=== PATIENT | female | born 1960 | race Caucasian/White ===

== ENCOUNTER 2024-09-26 14:12 | Outpatient (AMB) | payer OTHER, SELFPAY ==
--- NOTE | 2024-09-26 14:24 | A.OFFPC_ITS ---
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: No Allergies nitrofurantoin [From MACROBID] Allergy (Severe, Verified 09/26/24 14:25) SEVERE RASH HEAD TO TOE amoxicillin [AMOXICILLIN] Allergy (Mild, Verified 09/26/24 14:25) ITCHY vancomycin [VANCOMYCIN] Allergy (Mild, Verified 09/26/24 14:25) scalp itchiness ibuprofen [From MOTRIN] Allergy (Unknown, Verified 09/26/24 14:25) SHORT OF BREATH naproxen [From ALEVE] Allergy (Unknown, Verified 09/26/24 14:25) SHORT OF BREATH shellfish derived [SHELLFISH DERIVED] Allergy (Unknown, Verified 09/26/24 14:25) SHORT OF BREATH shrimp [SHRIMP] Allergy (Unknown, Verified 09/26/24 14:25) SHORT OF BREATH Medication List - Last Reconciled 09/26/24 by Yumiko Lentz PA-C calcium (calcium citrate) PO cholecalciferol (vitamin D3) 50 mcg PO DAILY estradiol 0.01%(0.1mg/gram) vaginal fluocinolone acetonide oil 0.01% drps otic (ears) [garlic PO] [grapefruit seed extract PO] vitamin K2 PO Tobacco use date assessed: 09/26/24 Dental Screening Dental Screen Date: 09/26/24 Did you have a dental visit in the last 12 months?: Yes Did you have a dental problem in the last 6 months where you did not have access to dental care?: No Was dental information given to patient?: Patient has dentist HPI est care HPI Details Patient is a 63-year-old female with a significant past medical history of vitamin-D insufficiency who presents today to [facility]. She is transferring from Dr. Khalil at [facility]. She has a hx of osteopenia, hld, and prediabetes. She does complain today of feeling tired more than baseline. She sleeps 4 hours and wonders if this is related to just hormone changes. She says she will feel better if she just get some blood work checked to make sure she is not anemic. Endo: She was told at one point she was borderline diabetic. Her two uncles are t1dm. CV: No history of hypertension. Blood pressures have who has been low end normal. In the past cholesterol was high. States her diet could be a little bit better. [place] [facility] [place] [facility] New[place] Hearing Screener: UTD, follows with Dr. Gibson Bone density: [place] [facility]oscopy: UTD 2023- due in 2033 She does work full-time and enjoys gardening and walking every day. [facility] Surgical History (Updated 09/26/24 @ 14:39 by Estella Cisneros CMA) History of bunionectomy Social History (Updated 09/26/24 @ 14:39 by Estella Cisneros CMA) Housing: House Alcohol intake: never Patient Tobacco Use Status: Never used Tobacco e-Cigarette/Vaping Use: Never Used Second Hand Smoke Exposure: No service: No Current occupational status: employed Current occupation: [employer] Current occupational exposures/hazards: No Cognitive needs: No Hearing needs: No Vision needs: No Questionnaire PHQ-9 Over the last 2 weeks, how often have you been bothered by any of the following problems? 1. Little interest or pleasure in doing things: not at all 2. Feeling down, depressed, or hopeless: not at all 3. Trouble falling or staying asleep, or sleeping too much: several days 4. Feeling tired or having little energy: several days 5. Poor appetite or overeating: not at all 6. Feeling bad about yourself - or that you are a failure or have let yourself or your family down: not at all 7. Trouble concentrating on things, such as reading the newspaper or watching television: not at all 8. Moving or speaking so slowly that other people could have noticed. Or the opposite - being so fidgety or restless that you have been moving around a lot more than usual: not at all 9. Thoughts that you would be better off or of hurting yourself in some way: not at all Total score: 2 Depression Screening Interpretation: Negative Depression Screening Done: Yes 97605 - PHQ-9 Billing: Yes Source: Developed by Drs. Eric Tillman, Apple Westbrook, Eduar Waldrop and colleagues, with an educational glenn from [employer]. Thrive Questionnaire I am a: Patient What is your living situation today?: I have a steady place to live Within the past 12 months, did the food you bought not last and you didn't have the money to get more?: Never true Within the past 12 months, did you worry whether your food would run out before you got money to buy more?: Never true Do you have trouble paying for medicines?: No Do you have trouble getting transportation to medical appointments?: No Do you have trouble paying your heating and electricity bill?: No Do you have trouble taking care of your child, family member or friend?: No Do you have trouble with day-to-day activities such as bathing, preparing meals, shopping, managing finances, etc.?: No Are you currently unemployed and looking for a job?: No Are you interested in more education?: No Please select the resources that you would like help with: None Currently or been in a relationship where the following occur: No concerns reported THRIVE Score: 0 AUDIT C Alcohol Use Questionnaire (AUDIT-C) 1. How often do you have a drink containing alcohol?: Never Total Score: 0 SYLVIA-7 AMB Questionnaire SYLVIA-7 Feeling nervous, anxious, or on edge: 0 = Not at all Not being able to stop or control worryin = Not at all Worrying too much about different things: 0 = Not at all Trouble relaxin = Not at all Being so restless that it is hard to sit still: 0 = Not at all Becoming easily annoyed or irritable: 3 = Nearly every day Feeling afraid as if something awful might happen: 0 = Not at all Total SYLVIA-7 score (0-4 normal; 5-9 mild; 10-14 moderate; 15-21 severe): 3 Source: Developed by Drs. Eric Tillman, Apple Westbrook, Eduar Waldrop and colleagues, with an educational glenn from [employer]. SYLVIA-7 Assessment Billing SYLVIA-7 Assessment Tool: SYLVIA-7 Assessment 49003 Physical exam (Primary Care) Vital Signs: Last Vital Signs Pulse 72 09/26/24 14:28 Resp 12 09/26/24 14:28 BP 90/62 09/26/24 14:28 Pulse Ox 99 09/26/24 14:28 Oxygen Delivery Method Room Air 09/26/24 14:28 BMI result Body Mass Index 20.0 Tobacco/Smoking Status: Tobacco use Status Tobacco use date assessed 09/26/24 09/26/24 14:27 Patient Tobacco Use Status Never used Tobacco 09/26/24 14:39 e-Cigarette/Vaping Use Never Used 09/26/24 14:39 PHQ-9: PHQ-9 Score PHQ-9: Total score 2 09/26/24 14:39 Depression Screening Interpretation: Negative Currently or been in a relationship where the following occur: No concerns reported Const Orientation/consciousness: patient oriented x3 HENMT Ears: hearing grossly normal bilaterally Neck Thyroid: Thyroid normal Lymphatic: no lymphadenopathy noted Resp Auscultation: clear to auscultation bilaterally Cardio Rate: regular rate Rhythm: regular rhythm Heart sounds: S1 normal heart sound present and S2 normal heart sound present GI Inspection: Yes normal to inspection Palpation (GI): Soft to palpation and Other GI palpation findings present (nontender, no cva tenderness) Auscultation: normoactive bowel sounds Rectal Exam - Female: deferred Skin General skin exam: no rashes or lesions noted Neuro General: patient oriented x3, gait normal and no focal motor deficits Coding Level of Care Code New Pt Level 3 (66590) Complex EM visit Add On G2211 Diagnoses Osteopenia M85.80 Dyslipidemia E78.5 Fatigue R53.83 Additional Codes SYLVIA-7 Assessment Billing - SYLVIA-7 Assessment Tool: SYLVIA-7 Assessment 39025 ([id number]) PHQ-9 - 49366 - PHQ-9 Billing: Yes ([id number]) Assessment & Plan Assessment & Plan (1) Osteopenia: Code(s): M85.80 - Other specified disorders of bone density and structure, unspecified site Category: Medical Plan: Bone density ordered. Labs ordered (2) Dyslipidemia: Code(s): E78.5 - Hyperlipidemia, unspecified Category: Medical Plan: Lipids ordered (3) Fatigue: Code(s): R53.83 - Other fatigue Category: Medical Plan: Labs ordered. We will follow up pending test results. Orders: Orders IRON PROFILE Today E78.5 - Hyperlipidemia, unspecified, M85.80 - Other specified disorders of bone density and structure, unspecified site, R53.83 - Other fatigue Vitamin B12 and Folate Today E78.5 - Hyperlipidemia, unspecified, M85.80 - Other specified disorders of bone density and structure, unspecified site, R53.83 - Other fatigue Magnesium Today E78.5 - Hyperlipidemia, unspecified, M85.80 - Other specified disorders of bone density and structure, unspecified site, R53.83 - Other fatigue TSH reflex Free T4 Today E78.5 - Hyperlipidemia, unspecified, M85.80 - Other specified disorders of bone density and structure, unspecified site, R53.83 - Ot her fatigue Comprehensive Carbon. Panel Fast Today E78.5 - Hyperlipidemia, unspecified, M85.80 - Other specified disorders of bone density and structure, unspecified site, R53.83 - Other fatigue Vitamin D 25-OH Total Today E78.5 - Hyperlipidemia, unspecified, M85.80 - Other specified disorders of bone density and structure, unspecified site, R53.83 - Other fatigue Complete Blood Count Auto Diff Today E78.5 - Hyperlipidemia, unspecified, M85.80 - Other specified disorders of bone density and structure, unspecified si te, R53.83 - Other fatigue Ferritin Today E78.5 - Hyperlipidemia, unspecified, M85.80 - Other specified disorders of bone density and structure, unspecified site, R53.83 - Other fatigue Lipid Panel Today E78.5 - Hyperlipidemia, unspecified, M85.80 - Other specified disorders of bone density and structure, unspecified site, R53.83 - Other fatigu e UA CC w/rflx Micro + Cult Today E78.5 - Hyperlipidemia, unspecified, M85.80 - Other specified disorders of bone density and structure, unspecified site, R53.83 - Other fatigue, Z13.220 - Encounter for screening for lipoid disorders Microalbumin, Random (w Creat) Today E78.5 - Hyperlipidemia, unspecified, M85.80 - Other specified disorders of bone density and structure, unspecified site, R53.83 - Other fatigue XR DEXA axial skeleton Today M85.80 - Other specified disorders of bone density and structure, unspecified site
[2024-09-26 14:28] VITALS: BP 90/62; PULSE 72; RESP 12; O2SAT 99
--- OUTSIDE RECORDS SUMMARY | 2024-09-26 16:52 | XMS_ITS | Data Portability ---
Author Organization [place] [facility],, DAYSI MENDOZA MD Address [address] [address] Care Team Providers Care Professional Architect Name Role Phone EDIE TAM Primary Care Provider [phone] Assessment No assessment recorded. Plan of Treatment Reminders Order Date Submit Date Provider Last Modified By Organization Details Last Modified Time Details Appointments None recorded. Lab cytology report, thin prep, smear or scraping, cervical or vaginal 2024 025 KRYSTA [facility] (Centralized Electronic Ordering - All Locations), Patient Can Go To The Location Of Their Choice, [id number] 5 14:16:15 wet mount, vaginal 2024 025 [email or web address] 1 In-Office Order, Internal Use Only DO Not Attach Compendium DO Not Attach Compendium, Do Not Delete/merge, [id number] 5 08:21:47 hemoglobin , gastrointe stinal, stool 2024 025 [email or web address] 1 In-Office Order, Internal Use Only DO Not Attach Compendium DO Not Attach Compendium, Do Not Delete/merge, [id number] 5 08:16:55 urinalysis , dipstick 2023 024 [email or web address] 1 In-Office Order, Internal Use Only DO Not Attach Compendium DO Not Attach Compendium, Do Not Delete/merge, [id number] 4 15:41:43 culture, urine 2023 024 KRYSTA [facility] (Centralized Electronic Ordering - All Locations), Patient Can Go To The Location Of Their Choice, [id number] 4 20:06:31 wet mount, vaginal 2023 024 [email or web address] 1 In-Office Order, Internal Use Only DO Not Attach Compendium DO Not Attach Compendium, Do Not Delete/merge, [id number] 4 13:45:28 pap test, thinprep, cervical 2022 023 [email or web address] [facility] (Centralized Electronic Ordering - All Locations), Patient Can Go To The Location Of Their Choice, [id number] 3 07:25:31 fecal occult blood, stool 2022 023 [email or web address] 1 In-Office Order, Internal Use Only DO Not Attach Compendium DO Not Attach Compendium, Do Not Delete/merge, [id number] 3 09:05:43 wet mount, vaginal 2022 023 [email or web address] 1 In-Office Order, Internal Use Only DO Not Attach Compendium DO Not Attach Compendium, Do Not Delete/merge, [id number] 3 08:30:36 wet mount, vaginal 2022 023 [email or web address] 1 In-Office Order, Internal Use Only DO Not Attach Compendium DO Not Attach Compendium, Do Not Delete/merge, [id number] 3 08:56:58 Referral None recorded. Procedures None recorded. Surgeries None recorded. Imaging MAMMO, screening, digital, bilateral - Breast Aspiration and/or Biopsy if needed 2024 025 [email or web address], [address], [address], [place], [address], 5 11:37:04 bone density 2022 023 [facility] Orders, [address], [address], [place], [address], 4 09:52:41 MAMMO, screening, digital, bilateral - Breast Aspiration and/or Biopsy if needed 2022 023 [facility] Orders, [address], [address], [place], [address], 4 08:02:42 Medication Orders estradiol 0.01% (0.1 mg/gram) vaginal cream 2024 025 [id number] [address] [place], [address], 5 08:16:56 fluconazol e 150 mg tablet 2023 025 [facility] [address] [place], [address], 5 07:56:51 estradiol 0.01% (0.1 mg/gram) vaginal cream 2022 023 [facility], [address] [place], [address], 3 09:07:18 fluconazol e 150 mg tablet 2022 023 [email or web address] [address] [place], [address], 5 07:56:47 terconazol e 0.4 % vaginal cream 2022 023 [facility]armacy #0859, [address] [place] [address], [address], 5 07:56:58 Patient TargetsNo targets recorded. Patient Instructions Encounter Date Encounter Id Patient Instructions Last Modified By Organization Details Last Modified Time 09/22/2022 [id number] vaginal yeast infection: care instructions Not available 09/22/2022 08:56:58 She is here for a few day histroy of vaginal pruritus. She notes that her vaginal yeast infection cleared up completely after treatment in 07/14, and only recently returned. she is using the estradiol vaginal cream nightly, now. She has symptomatic monilia, however on wet mount the amount of yeast is less than she usually has, and the vaginal cells are becoming more estrogenized, and so overall this is an improvement. She prefers terazol 7 cream, rc called in. Continue her present therapy, and add in RepHresh for the next few weeks. [email or web address] Not available 09/22/2022 08:59:54 12/29/2022 [id number] vaginal yeast infection: care instructions [place] Not available 12/29/2022 08:30:36 She is here for a complaint of vaginal pruritus and discharge. She has symptomatic monilia, rx diflucan, call if symptoms persist or recur. Not available 12/29/2022 08:43:27 02/27/2023 [id number] learning about healthy weight [place] Not available 02/27/2023 09:05:40 She is here for annual, had issues with recurring vaginitis this yea, would like wet selina just to be certain noting is wrong, she has some minor discomfort vaginally. Note from 2021: She is here for annual exam, she took a leftover diflucan 3 weeks ago, requests wet selina though she feels improved. She is doing well on her estradiol vaginal cream, elects to continue. _ Check bone density. Continue estradiol vaginal cream. She appears to be doing well. Monthly self breast exam was taught, and stressed, and is advised to call if she discovers any new mass in the breast. [facility] Not available 02/27/2023 09:07:02 12/04/2023 [id number] urinary tract infection in women information [place] Not available 12/04/2023 15:41:43 vaginal yeast infection: care instructions [place] Not available 12/04/2023 13:45:16 She is here for a few day histroy of vaginal pruritus. she was treated for yeast with diflucan in 05/17 after taking antibiotics, and also in 07/15, the problems resolved but now it is back. She has symptomatic monilia vaginitis. Rx diflucan now, and a refill is given. Advised to use either RepHresh or boric acid 600 mg caps twice a week vaginally for a month, to try to improve the pH. She had left the office,then called an hour later and asked if she could give us a urine specime to test in case it is a UTI. She returned, and the urine dip is clear, will check culture at her request. [facility] Not available 12/04/2023 15:42:39 06/11/2024 [id number] learning about healthy weight [facility] Not available 06/11/2024 08:16:55 vaginal yeast infection: care instructions [facility] Not available 06/11/2024 08:21:47 She is here for annual, doing well on estradiol cream, wonders if she has a yeast infection. Note from 2022: She is here for annual, had issues with recurring vaginitis this yea, would like wet selina just to be certain noting is wrong, she has some minor discomfort vaginally. __ She appears to be doing well. Renew estradiol vaginal cream, it is helping to prevent the recurrent yeast she was having, Monthly self breast exam was taught, and stressed, and is advised to call if she discovers any new mass in the breast. Wet selina are negative for yeast, she is reassured. If pap shows yeast we can call something in. [facility] Not available 06/11/2024 08:22:48 Reason for Referral None Reported. Results Created Date Observation Date Name Description Value Unit Range Abnormal Flag Note LastModifiedBy Organization Detail LastModifiedTime 09/23/1909/22/2022 wet mount , vagin al Clue Cells negati ve Not Available In-Office Order Internal Use Only DO Not Attach Compendium DO Not Attach Compendium, Do Not Delete/merge, [id number] 09/22/2022 08:47:54 09/23/1909/22/2022 wet mount , vagin al Trichomonas negati ve Not Available In-Office Order Internal Use Only DO Not Attach Compendium DO Not Attach Compendium, Do Not Delete/merge, [id number] 09/22/2022 08:47:54 09/23/1909/22/2022 wet mount , vagin al Hyphae positi ve Not Available In-Office Order Internal Use Only DO Not Attach Compendium DO Not Attach Compendium, Do Not Delete/merge, [id number] 09/22/2022 08:47:54 09/23/19 23 09/22/2022 wet mount , vagin al atrophic epithelium positi ve Not Available In-Office Order Internal Use Only DO Not Attach Compendium DO Not Attach Compendium, Do Not Delete/merge, [id number] 09/22/2022 08:47:54 12/30/19 23 12/29/2022 wet mount , vagin al Clue Cells negati ve Not Available In-Office Order Internal Use Only DO Not Attach Compendium DO Not Attach Compendium, Do Not Delete/merge, [id number] 12/29/2022 08:30:08 12/30/19 23 12/29/2022 wet mount , vagin al Trichomonas negati ve Not Available In-Office Order Internal Use Only DO Not Attach Compendium DO Not Attach Compendium, Do Not Delete/merge, [id number] 12/29/2022 08:30:08 12/30/19 23 12/29/2022 wet mount , vagin al Hyphae positi ve Not Available In-Office Order Internal Use Only DO Not Attach Compendium DO Not Attach Compendium, Do Not Delete/merge, [id number] 12/29/2022 08:30:08 12/30/19 23 12/29/2022 wet mount , vagin al atrophic epithelium positi ve Not Available In-Office Order Internal Use Only DO Not Attach Compendium DO Not Attach Compendium, Do Not Delete/merge, [id number] 12/29/2022 08:30:08 02/28/20 23 02/27/2023 [facility] CYTOL OGY results Swathi nt Name: MEETA HOFFMAN florecita : [id number] (Age: 62) Lab Acces nona #: [id number] Colle ction Date: 2022 Acces nona Date: 2022 Sign Out Date: 03/03 Tissu e Sourc e: 1: THINP REP SHIFT FOREMAN PAP TEST, CERVI YANG: Final Diagn osis: NEGAT DA FOR INTRA EPITH ELIAL LESIO N OR MALIG MICHELE . Satis facto ry for evalu ation . Endoc ervic al/tr ansfo rmati on zone prese nt. Clini yang Histo ry: Date of Last Menst rual Perio d: not avail able Menst rual Histo ry: Post- menop ausal Contr acept da Histo ry: not avail able Ancil handy Testi ng: HPV (ASCU S) Case image d by the ThinP rep Imagi ng Syste m with massiel ramon or josias ha Perfo rmed at [facility] ate Refer ence [facility], [address] [place] Clini yang Histo ry (othe r): Z01.4 19, ROTUI NE SCREE N LPS 03/04 NEG Phone #: [phone], On-Ca ll Patho logis t: [id number] Not Available [facility] (Centralized Electronic Ordering - All Locations) Patient Can Go To The Location Of Their Choice, [id number] 03/03/2023 10:22:04 02/28/20 23 02/27/2023 fecal occul t blood , stool Occult Blood negati ve Not Available In-Office Order Internal Use Only DO Not Attach Compendium DO Not Attach Compendium, Do Not Delete/merge, [id number] 02/27/2023 08:39:16 12/04/19 24 12/05/2023 URINE CULTU RE, ROUTI NE urine culture, routine Final report Not Available [facility] ([facility]) [address] [facility], [place], [address], 12/05/2023 20:06:31 12/04/19 24 12/05/2023 URINE CULTU RE, ROUTI NE result 1 No growth Not Available [facility] ([facility]) [address] [facility], [place], [address], 12/05/2023 20:06:31 12/04/19 24 12/04/2023 urina lysis , dipst ick GLU Negati ve Not Available In-Office Order Internal Use Only DO Not Attach Compendium DO Not Attach Compendium, Do Not Delete/merge, 12/04/2023 15:32:58 12/04/19 24 12/04/2023 urina lysis , dipst ick GENESIS Negati ve Not Available In-Office Order Internal Use Only DO Not Attach Compendium DO Not Attach Compendium, Do Not Delete/merge, 12/04/2023 15:32:58 12/04/19 24 12/04/2023 urina lysis , dipst ick KET Negati ve Not Available In-Office Order Internal Use Only DO Not Attach Compendium DO Not Attach Compendium, Do Not Delete/merge, 12/04/2023 15:32:58 12/04/19 24 12/04/2023 urina lysis , dipst ick SG 1.010 Not Available In-Office Order Internal Use Only DO Not Attach Compendium DO Not Attach Compendium, Do Not Delete/merge, 12/04/2023 15:32:58 12/04/19 24 12/04/2023 urina lysis , dipst ick BLO Negati ve Not Available In-Office Order Internal Use Only DO Not Attach Compendium DO Not Attach Compendium, Do Not Delete/merge, 12/04/2023 15:32:58 12/04/19 24 12/04/2023 urina lysis , dipst ick pH 5.0 Not Available In-Office Order Internal Use Only DO Not Attach Compendium DO Not Attach Compendium, Do Not Delete/merge, 12/04/2023 15:32:58 12/04/19 24 12/04/2023 urina lysis , dipst ick PRO Negati ve Not Available In-Office Order Internal Use Only DO Not Attach Compendium DO Not Attach Compendium, Do Not Delete/merge, 12/04/2023 15:32:58 12/04/19 24 12/04/2023 urina lysis , dipst ick URO 0.2 E.U. / dl Not Available In-Office Order Internal Use Only DO Not Attach Compendium DO Not Attach Compendium, Do Not Delete/merge, 12/04/2023 15:32:58 12/04/19 24 12/04/2023 urina lysis , dipst ick NIT negati ve Not Available In-Office Order Internal Use Only DO Not Attach Compendium DO Not Attach Compendium, Do Not Delete/merge, [id number] 12/04/2023 15:32:58 12/04/19 24 12/04/2023 urina lysis , dipst ick JENIFER Negati ve Not Available In-Office Order Internal Use Only DO Not Attach Compendium DO Not Attach Compendium, Do Not Delete/merge, [id number] 12/04/2023 15:32:58 12/04/19 24 12/04/2023 wet mount , vagin al Clue Cells negati ve Not Available In-Office Order Internal Use Only DO Not Attach Compendium DO Not Attach Compendium, Do Not Delete/merge, [id number] 12/04/2023 13:45:08 12/04/19 24 12/04/2023 wet mount , vagin al Trichomonas negati ve Not Available In-Office Order Internal Use Only DO Not Attach Compendium DO Not Attach Compendium, Do Not Delete/merge, [id number] 12/04/2023 13:45:08 12/04/19 24 12/04/2023 wet mount , vagin al Hyphae positi ve Not Available In-Office Order Internal Use Only DO Not Attach Compendium DO Not Attach Compendium, Do Not Delete/merge, [id number] 12/04/2023 13:45:08 12/04/19 24 12/04/2023 wet mount , vagin al atrophic epithelium positi ve Not Available In-Office Order Internal Use Only DO Not Attach Compendium DO Not Attach Compendium, Do Not Delete/merge, [id number] 12/04/2023 13:45:08 06/11/19 25 06/13/2024 IGP, RFX APTIM A HPV ASCU diagnosis: Commen t NEGAT DA FOR INTRA EPITH ELIAL LESIO N OR JOHANNY BAUTISTA . Not Available [facility] ([facility]) [address] [facility], [place], [address], 06/13/2024 14:16:15 06/11/19 25 06/13/2024 IGP, RFX APTIM A HPV ASCU specimen adequacy: Commen t Satis facto ry for evalu ation . Not Available [facility] ([facility]) [address] [place], [address], 06/13/2024 14:16:15 06/11/19 25 06/13/2024 IGP, RFX APTIM A HPV ASCU clinician provided ICD10: Eddie verdugo Z01.4 19 Not Available [facility] ([facility]) [address] [place], [address], 06/13/2024 14:16:15 06/11/19 25 06/13/2024 IGP, RFX APTIM A HPV ASCU performed by: Emily Amin (ASCP ) Not Available [facility] ([facility]) [address] [place], [address], 06/13/2024 14:16:15 06/11/19 25 06/13/2024 IGP, RFX APTIM A HPV ASCU . . Not Available [facility] ([facility]) [address] [place], [address], 06/13/2024 14:16:15 06/11/19 25 06/13/2024 IGP, RFX APTIM A HPV ASCU note: Eddie verdugo The Pap smear is a scree harshil test desig ayah to aid in the detec tion of gio ligna nt and malig nant condi tions of the uteri ne cervi x. It is not a diagn ostic proce dure and shoul d not be used as the sole means of detec ting cervi yang cance r. Both false -posi tive and false -nega tive repor ts do occur . Not Available [facility] ([facility]) [address] [place], [address], 06/13/2024 14:16:15 06/11/19 25 06/13/2024 IGP, RFX APTIM A HPV ASCU test methodology: Commen t This liqui d based ThinP rep(R ) pap test was carlin poon with the use of an image guide barron siddiqui. Not Available [facility] ([facility]) [address] [facility], [place], [address], 06/13/2024 14:16:15 06/11/19 25 06/13/2024 IGP, RFX APTIM A HPV ASCU . Commen t The HPV DNA refle x crite thao were not met with this speci men resul t there fore, no HPV testi ng was perfo rmed. Not Available [facility] ([facility]) [address] [facility], [place], [address], 06/13/2024 14:16:15 06/11/19 25 06/11/2024 wet mount , vagin al Clue Cells negati ve Not Available In-Office Order Internal Use Only DO Not Attach Compendium DO Not Attach Compendium, Do Not Delete/merge, 06/11/2024 08:17:12 06/11/19 25 06/11/2024 wet mount , vagin al Trichomonas negati ve Not Available In-Office Order Internal Use Only DO Not Attach Compendium DO Not Attach Compendium, Do Not Delete/merge, 06/11/2024 08:17:12 06/11/19 25 06/11/2024 wet mount , vagin al Hyphae negati ve Not Available In-Office Order Internal Use Only DO Not Attach Compendium DO Not Attach Compendium, Do Not Delete/merge, 06/11/2024 08:17:12 06/11/19 25 06/11/2024 wet mount , vagin al atrophic epithelium positi ve Not Available In-Office Order Internal Use Only DO Not Attach Compendium DO Not Attach Compendium, Do Not Delete/merge, 06/11/2024 08:17:12 06/11/19 25 06/11/2024 hemog lobin , gastr ointe gasper l, stool Occult Blood negati ve Not Available In-Office Order Internal Use Only DO Not Attach Compendium DO Not Attach Compendium, Do Not Delete/merge, 2025 07:58:57 08/04/19 24 08/03/2023 MAMMO , scree harshil, digit al, bilat eral No observ ation record ed. [facility] [place] [address] [place], [address], 08/07/2023 07:55:53 08/10/19 24 08/03/2023 bone densi ty No observ ation record ed. [facility] [place] [address] [place], [address], 08/10/2023 10:50:09 Result Notes None recorded. Problems Name Problem SNOMED Code Status Onset Date Resolution Date Notes Provider Name and Address Organization Details Recorded Time Osteopenia 485443674 Active 2002 was given Fosamax for 3 to 4 years, but developed gastritis had a colonoscop y MD Mary Torres [address], [place], [address], [place] [facility], 5 10:15:28 Mammograph y abnormal 062214898 Active MD Mary Torres,[address], [place], [address], [place] - [facility], 6 08:09:59 Lesion of vulva 851687860 Active MD Mary Torres,[address], [place], 5, [place] - [facility], 5 10:42:11 Atrophic vaginitis 37362386 Active 2020 1 finger introitus, NEEDS SMALLEST SPECULUM MD Mary Torres,[address], [place], 5, [place] - [facility], 3 09:08:02 Fatigue 93606415 Active Daysi Mendoza MD [address], [place], 5, [place] - [facility], 5 10:15:28 On examinatio n - lymphadeno reyes Active Daysi Mendoza MD [address], [place], [address], [place] [facility], 5 10:15:28 Menopausal syndrome 758795478 Active Daysi Mendoza MD [address], [place], [address], [place] [facility], 5 10:15:28 Problem Notes None recorded. Procedures Surgical History Date Name Laterality Status Provider Name and Address Organization Details Recorded Time 08/23/19 24 Most Recent Mammogram completed Khushboo Carey [place] - [place] in [facility], 12/04/2023 13:29:27 12/29/19 18 excision of bunion completed Khushboo Carey [place] [facility], 02/19/2020 09:31:11 04/23/20 15 Vulvar Biopsy completed Daysi Mendoza MD [address], [place], [address], [place] [facility], 04/23/2015 10:17:59 04/24/18 78 Other completed Khushboo Carey [place] - [facility], 08/06/2013 11:16:16 04/24/18 69 Other completed Khushboo Carey [place] - [facility], 04/20/2016 09:46:09 04/24/18 68 Tonsillectomy completed Khushboo Carey [place] - [facility], 08/06/2013 11:16:16 Imaging Results None recorded. Procedure Notes None recorded. Medical Equipment None Reported. Allergies Allergen ID Allergen Name Allergen Category Reaction Reaction Severity Criticality Documentation Date Start Date Code Code System Note Provider Name and Address Organization Details Recorded Time 18890 Macrobid medicatio n rash Not available Not available 08/06/2013 16355 1 RxNorm [place] Valadez in [facility], 4 11:16:16 38792 amoxicill in medicatio n itching Not available Not available 08/06/2013 723 RxNorm [place] Holloway in [facility], 3 11:36:40 30668 vancomyci n medicatio n hives moderate Not available 05/20/2020 41876 RxNorm DEWAYNE Holloway in [facility], 1 10:38:34 29220 Bactrim medicatio n rash moderate Not available 01/29/2021 90638 9 RxNorm Daysi Mendoza MD [address] [facility], [address], [place], [address] , [place]pe in [facility], 1 08:19:29 85919 butoconaz ole nitrate medicatio n muscle cramps moderate Not available 02/23/2021 31489 RxNorm Sever e abd cramp s when used. [place] in [facility], 1 08:29:33 Medications Name Sig Start Date Stop Date Status Note LastModified by Organization Details LastModified Time tretinoin 0.1 % topical cream APPLY A PEA-SIZE D AMOUNT TO DRY SKIN FACE AT BEDTIME TOLERATE D, FOLLOWED BY MOISTURI ZER active Not Available Not Available No t Available terconazo le 0.4 % vaginal cream INSERT 1 APPLICAT ORFUL EVERY DAY BY VAGINAL ROUTE FOR 7 DAYS. 06/11 completed Not Available Not Available Not Available azithromy vandana 250 mg tablet 08/08 completed Not Available Not Available Not Available fluconazo le 150 mg tablet TAKE 1 TABLET BY MOUTH DIRECTED . REPEAT IN 1 WEEK IF STILL HAVING SYMPTOMS . 06/11 completed Not Available Not Available Not Available hydrocodo ne 5 mg-acetam inophen 325 mg tablet 08/08 completed Not Available Not Available Not Available tretinoin 0.025 % topical cream APPLY A PEA SIZED AMOUNT TO FACE AT BEDTIME START EVERY OTHER NIGHT FOLLOW WITH MOISTURI ZER 07/18 completed Not Available Not Available Not Available prednison e 20 mg tablet TAKE 3 TABLETS BY MOUTH EVERY DAY FOR 3 DAYS, THEN 2 TABS DAILY FOR 3 DAYS. 02/23 completed Not Available Not Available Not Available gabapenti n 400 mg capsule TAKE 1 CAPSULE BY MOUTH ONCE A DAY AT BEDTIME 08/10 completed Not Available Not Available Not Available metronida zole 500 mg tablet TAKE 1 TABLET BY MOUTH TWICE A DAY FOR 7 DAYS 10/05 completed Not Available Not Available Not Available tretinoin 0.05 % topical cream APPLY PEA SIZED AMOUNT TO FACE AT BEDTIME TOLERATE D, FOLLOWED BY MOISTURI ZER active Not Available Not Available No t Available sulfameth oxazole 800 mg-trimet hoprim 160 mg tablet TAKE 1 TABLET BY MOUTH EVERY 12 HOURS FOR 7 DAYS 02/23 completed Not Available Not Available Not Available triamcino lone acetonide 0.1 % topical cream PLEASE SEE ATTACHED FOR DETAILED DIRECTIO NS active Not Available Not Available No t Available doxycycli ne monohydra te 100 mg capsule TAKE 1 CAPSULE BY MOUTH TWICE A DAY FOR 7 DAYS 06/11 completed Not Available Not Available Not Available gabapenti n 100 mg capsule 05/20 completed Not Available Not Available Not Available epinephri ne 0.3 mg/0.3 mL injection , auto-inje ctor INJECT 1 PEN INTRAMUS CULARLY ONCE TO TREAT ANAPHYLA XIS active Not Available Not Available No t Available estradiol 0.01% (0.1 mg/gram) vaginal cream INSERT 0.5 G VAGINALL Y EVERY DAY active Not Available Not Available No t Available methylpre dnisolone 4 mg tablets in a dose pack 04/20 completed Not Available Not Available Not Available boric acid (bulk) powder please compound 600 mg individu al boric acid capsules : use one 600 mg boric acid capsule in the vaginal canal every day. 10/05 completed Not Available Not Available Not Available fluticaso ne propionat e 50 mcg/actua tion nasal spray,alyssa pension USE 1 SPRAY INTO EACH NOSTRIL TWICE A DAY FOR 30 DAYS active Not Available Not Available No t Available oxycodone 5 mg tablet TAKE 1 TABLET BY MOUTH EVERY 6 HOURS NEEDED FOR PAIN 05/20 completed Not Available Not Available Not Available Vitamin D3 25 mcg (1,000 unit) capsule Take by oral route. 02/23 completed Not Available Not Available Not Available chlorhexi dine gluconate 0.12 % mouthwash 08/08 completed Not Available Not Available Not Available iron 04/20 completed Not Available Not Available Not Available Centrum Silver 02/27 completed Not Available Not Available Not Available Vitamin D3 07/07 completed Not Available Not Available Not Available Calcium 500 08/10 completed 1500 ad day lactait. Not Available Not Available Not Available collagen (bovine) 10/05 completed Not Available Not Available Not Available fluocinol one acetonide oil 0.01 % ear drops PLACE 3 DROPS INTO AFFECTED EAR(S) TWICE DAILY FOR 2 WEEKS THEN NEEDED active Not Available Not Available No t Available GaviLyte- G 236 gram-22.7 4 gram-6.74 gram-5.86 gram oral solution TAKE 4000 ML BY MOUTH DIRECTED active Not Available Not Available No t Available Probiotic 02/23 completed Not Available Not Available Not Available Gynazole- 1 2 % vaginal cream Insert 1 applicat orful every day by vaginal route for 1 day. 02/23 completed this was dispense d as a sample Not Available Not Available Not Available BinaxNOW COVID-19 Ag Self Test kit active Not Available Not Available Not Available Vitals Date Recorded Body height Body mass index (BMI) Body weight Heart rate Body temperature Systolic blood pressure Diastolic blood pressure Provider Name and Address Organization Details Last Updated DateTime 5 160.02 cm 19.7 kg/m2 39002.4 7 g 84 /min 97.2 [degF] 105 mm[Hg] 56 mm[Hg] Khushboo Carey MA - [facility], 5 07:55:20 Date Recorded Body height Body mass index (BMI) Body weight Systolic blood pressure Diastolic blood pressure Provider Name and Address Organization Details Last Updated DateTime 09/22/2022 160.02 cm 19.7 kg/m2 13860.75 g 142 mm[Hg] 79 mm[Hg] Michelle Samuels MA - [facility], 3 08:32:20 Date Recorded Body height Body mass index (BMI) Body weight Body temperature Heart rate Systolic blood pressure Diastolic blood pressure Provider Name and Address Organization Details Last Updated DateTime 4 160.02 cm 19.5 kg/m2 93358.8 8 g 97.3 [degF] 86 /min 119 mm[Hg] 54 mm[Hg] Khushboo Lepe in [facility], 4 13:26:58 Date Recorded Body height Body mass index (BMI) Body weight Heart rate Systolic blood pressure Diastolic blood pressure Provider Name and Address Organization Details Last Updated DateTime 3 160.02 cm 18.4 kg/m2 41893.6 1 g 84 /min 134 mm[Hg] 67 mm[Hg] Michelle Lepe in [facility], 3 08:04:03 Date Recorded Body height Body mass index (BMI) Body weight Heart rate Systolic blood pressure Diastolic blood pressure Provider Name and Address Organization Details Last Updated DateTime 3 160.02 cm 19.3 kg/m2 03711.5 7 g 87 /min 124 mm[Hg] 65 mm[Hg] Michelle Lepe in [facility], 3 08:46:04 Social History Question Answer Notes LastModified by Organizat ion Details LastModified Time Tobacco Smoking Status Never Smoker Not Available [facility] 02/25/2020 03:19:37 What Is Your Level Of Caffeine Consumption? Heavy Information not available 02/23/2022 In The 14 Days Before Symptom Onset, Have You Had Close Contact With A Laboratory-confirm ed COVID-19 While That Case Was Ill? No Information n ot available 01/18/2021 In The 14 Days Before Symptom Onset, Have You Had Close Contact With A Person Who Is Under Investigation For COVID-19 While That Person Was Ill? No Information not available 01/18/2021 Have You Been To An Area Known To Be High Risk For COVID-19? No Information not available 01/18/2021 What Type Of Diet Are You Following? REGULAR [id number] Information n ot available 02/25/2020 Which Illicit Or Recreational Drugs Have You Used? No [id number] Information not available 02/25/2020 Do You Reside In Or Have You Traveled To An Area Where Ebola Virus Transmission Is Active? No [id number] Information not available 02/25/2020 Education 2 Year College Information not available 08/06/2013 What Is The Highest Grade Or Level Of School You Have Completed Or The Highest Degree You Have Received? [id number] Information not available 01/18/2021 Who Is Your Employer? [employer]. Information not available 09/15/2021 How Many Days In The Past Year Have You Had A Heavy Drinking Consumption (4+ Female, 5+ Male)? 0 Information no t available 04/20/2016 Are There Any Guns Present In Your Home? No Information not available 01/18/2021 High Number Of Sexual Partners No Information not available 04/20/2016 To Which Gender Do You Self-identify? Female Information n ot available 04/20/2016 Marital Status Single Informatio n not available 08/06/2013 What Was The Date Of Your Most Recent Tobacco Screening? 06/11/2024 Information not available 06/11/2024 What Is Your Relationship Status? Single Information not available 01/18/2021 Are You Sexually Active? No [id number] Information not available 02/25/2020 How Much Tobacco Do You Smoke? No [id number] Information not available 02/25/2020 General Stress Level Medium Information not available 12/04/2023 How Many Years Have You Smoked Tobacco? 0 [id number] Information not available 02/25/2020 Have You Recently (within The Last 12 Weeks, Or During A Current ) Traveled To Or Lived In A Zika-affected Area? No Information not available 04/20/2016 Sex: Female Functional Status Question Answer Note LastModified by Organizat ion Details LastModified Time Do you use any illicit or recreational drugs? No Information not available 01/18/2021 Do you or have you ever used any other forms of tobacco or nicotine? No Information not available 01/18/2021 What is your level of alcohol consumption? None [id number] Information not available 02/25/2020 Do you or have you ever used smokeless tobacco? Never used smokeless tobacco Information not available 02/19/2020 Are you currently employed? 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 Never used electronic cigarettes Information not available 02/19/2020 What is your exercise level? Occasional [id number] Information not available 02/23/2021 Mental Status Question Answer Note LastModified by Organization D etails LastModified Time Do you feel stressed (tense, restless, nervous, or anxious, or unable to sleep at night)? [id number] Information not available 01/18/2021 Family History Relationship Description Onset Age of this Age Resolved Age Notes LastModified by Organization Details LastModified Time Mother Malignant tumor of breast 42 bilate ral..h ad a recurr ence. [email or web address] Not available 02/19/2020 09:29:19 Mother Problem 55 basal cell skin ca tmeczywor Not available 02/19/2020 09:29:05 Paternal Aunt Malignant tumor of breast 52 double masect dhruv Not available 04/23/2015 10:14:57 Father Problem 66 prosta te ca Not available 04/23/2015 10:14:57 Father Heart disease Not available 03/26 10:14:57 Maternal Grandmother Malignant tumor of breast Not available 03/26 10:14:57 Paternal Grandmother Problem women ca Not available 04/23/2015 10:14:57 Maternal Uncle Diabetes mellitus x2 Not available 03/26 10:14:57 Paternal Aunt Malignant tumor of breast 47 Not available 03/26 10:14:57 Medical History Condition Response Anesthesia complications N High Blood Pressure N Candidate for MyRisk panel N Autoimmune Condition N Thyroid Problems N Kidney or Bladder Problems N GI Problems N Lung Disease N Depression N Defects or Inherited Disease N History of Ovarian Cancer N Anemia Y History of Breast Cancer N ADA exposure N BRCA testing in past N Osteopenia N Psychiatric Illness N Anxiety Disorder Y Diabetes N Arthritis N Headaches or Migraines Y Infertility N Asthma N History of Cancer N Endometriosis N Hepatitis N Heart Disease N Hypertension N Osteoporosis N Gynecological History Statement/Question Response Dysmenorrhea Y If Post Menopausal, Age at Menopause 57 Flow Light Date of LMP 06/29/2017 Frequency of Cycle (Q days) Menses Monthly N Age at Menarche 18 Current Control Method None Most Recent Mammogram 08/23/2023 Age at First Child 2 Obstetrics History GPAL:G 0 P 0 0 0 0 Immunizations Vaccine Type Date Status Note Provider Nam e and Address Organization Details Recorded Time SARS-COV-2 (COVID-19) vaccine, UNSPECIFIED 1 completed DEWAYNE Holloway in [facility], 02/27/2023 08:45:10 SARS-COV-2 (COVID-19) vaccine, UNSPECIFIED 1 completed DEWAYNE Holloway in [facility], 02/27/2023 08:45:10 COVID-19, mRNA, LNP-S, PF, 30 mcg/0.3 mL dose 1 completed DEWAYNE Holloway in [facility], 02/27/2023 08:45:10 COVID-19, mRNA, LNP-S, PF, 30 mcg/0.3 mL dose 1 completed DEWAYNE Holloway in [facility], 02/27/2023 08:45:09 COVID-19, mRNA, LNP-S, PF, 30 mcg/0.3 mL dose 1 completed DEWAYNE Holloway in [facility], 02/27/2023 08:45:10 COVID-19, mRNA, LNP-S, PF, 30 mcg/0.3 mL dose 1 completed DEWAYNE Holloway in [facility], 02/27/2023 08:45:10 Td (adult), 2 Lf tetanus toxoid, preservative free, adsorbed 5 completed DEWAYNE Holloway in [facility], 02/27/2023 08:45:10 Past Encounters Encounter ID Performer Location Encounter Start Date Encounter Closed Date Diagnosis/Indication Diagnosis SNOMED-CT Code Diagnosis ICD10 Code Diagnosis Note [id number] MD DAYSI Torres MD [address] [place] [address],[address] [place] [address] 08/06/2013 10:36:44 08/08/2013 13:42:07 Fatigue 74860205 Venereal d isease screening 736215951 On examina tion - lymphadenopathy 527160091 Menopausal syndrome 098071049 [id number] MD DAYSI Torres MD [address] [place] [address], [place] [address] 02/11/2014 08:59:48 02/11/2014 11:16:46 Specialized medical examination 99346514 Screening mammography 75406432 Osteopenia [id number] [id number] MD DAYSI Torres MD [address] [place] [address], [place] [address] 03/05/2014 08:57:49 03/05/2014 10:21:00 Osteopenia [id number] MD DAYSI Torres MD [address] [place] [address], [place] [address] 04/14/2015 07:47:48 04/14/2015 11:40:53 Specialized medical examination 29113060 Z01.419 Screening for malignant neoplasm of rectum 089760594 Z12.12 Screening mammography 24 718200 Z12.31 [id number] MD DAYSI Torres MD [address] [place] [address], [place] [address] 04/23/2015 09:24:17 04/23/2015 11:38:56 Lesion of vulva 490171831 N90.89 [id number] MD DAYSI Torres MD [address] [place] [address],[place] [address] 04/20/2016 09:17:29 04/20/2016 11:17:19 Specialized medical examination 80389639 Z01.419 Screening mammography 24 804770 Z12.31 Osteopenia 987208286 M85 .851 [id number] MD DAYSI Torres MD [address] [place] [address], [place] [address] 07/07/2016 15:09:21 07/07/2016 16:16:42 Osteopenia 927220832 M85.851 [id number] MD DAYSI Torres MD [address] [place] [address] [place] [address] 08/08/2017 08:18:23 08/08/2017 12:59:38 Specialized medical examination 93337494 Z01.419 Screening for malignant neoplasm of rectum 244014325 Z12.12 Screening mammography 24 714413 Z12.31 [id number] MD DAYSI Torres MD [address] [place] [address] [place] [address] 08/10/2018 09:45:39 08/10/2018 14:51:28 Candidal vulvovaginitis 85720587 B37.3 [id number] MD DAYSI Torres MD [address] [place] [address] 08/28/2018 08:49:18 08/28/2018 10:48:29 Specialized medical examination 07696537 Z01.419 Screening for malignant neoplasm of rectum 591956938 Z12.12 Screening mammography 24 963517 Z12.31 Screening for osteoporosis 983616163 Z13.820 [id number] MD DAYSI Torres MD [address] [place] [address],[facility] [place] [address] 02/19/2020 09:21:56 02/19/2020 10:32:31 Specialized medical examination 40924405 Z01.419 Screening mammography 24 874532 Z12.31 Acute lowe r urinary tract infection 145711757 R30.0 Mass of left breast 1224 960851 9283979 N63.25 Candidal vulvovaginitis 94073773 B37.3 [id number] MD DAYSI Torres MD [address] [place] [address] [place] [address] 02/26/2020 08:51:09 02/26/2020 09:38:21 Venereal disease screening 148536935 Z11.3 Candidal vulvovaginitis 12215031 B37.3 Vulvitis 64044151 N76.2 B96.89 [id number] MD DAYSI Torres MD [address] [place] [address],[place] [address] 05/20/2020 10:35:25 05/20/2020 12:03:54 Candidal vulvovaginitis 86139821 B37.3 Vulvitis 24836437 N76.2 B96.89 [id number] MD DAYSI Torres MD [address] [place] [address],[place] [address] 05/21/2020 09:02:57 05/21/2020 11:24:36 Candidal vulvovaginitis 59032805 B37.3 Vulvitis 46744822 N76.2 B96.89 [id number] MD DAYSI Torres MD [address] [place] [address],[place] [address] 06/04/2020 13:18:16 06/04/2020 14:18:15 Candidal vulvovaginitis 13646152 B37.3 Atrophic vaginitis 70781 000 N95.2 [id number] MD DAYSI Torres MD [address] [place] [address],[place] [address] 06/15/2020 09:09:33 06/15/2020 10:46:34 Candidal vulvovaginitis 42739545 B37.3 [id number] MD DAYSI Torres MD [address] [place] [address],[place] [address] 07/13/2020 13:00:24 07/13/2020 14:08:37 Acute lower urinary tract infection 373943647 R30.0 Candidal vulvovaginitis 59571192 B37.3 [id number] MD DAYSI Torres MD [address] [place] [address],[place] [address] 07/23/2020 09:21:48 07/23/2020 10:47:42 Acute lower urinary tract infection 321000703 R30.0 Candidal vulvovaginitis 46280277 B37.3 [id number] MD DAYSI Torres MD [address] [place] [address],[place] [address] 10/05/2020 10:55:06 10/05/2020 13:23:22 Acute lower urinary tract infection 130358746 R30.0 Vaginal discharge 842364 006 N89.8 [id number] MD DAYSI Torres MD [address] [place] [address],[place] [address] 01/18/2021 13:19:59 01/18/2021 14:38:09 Acute lower urinary tract infection 967044021 R30.0 Candidal vulvovaginitis 02862245 B37.3 [id number] MD DAYSI Torres MD [address] [place] [address], [place] [address] 02/23/2021 08:21:27 02/23/2021 10:35:37 Specialized medical examination 69088981 Z01.419 Screening for malignant neoplasm of rectum 314257477 Z12.12 Screening mammography 24 371692 Z12.31 Acute lowe r urinary tract infection 594851903 R30.0 Vaginal discharge 210997 006 N89.8 Atrophic vaginitis 23015 000 N95.2 [id number] MD DAYSI Torres MD [address] [place] [address], [place] [address] 06/11/2021 11:24:24 06/11/2021 12:49:21 Acute lower urinary tract infection 041367166 R30.0 Candidal vulvovaginitis 01248454 B37.3 [id number] MD DAYSI Torres MD [address] [place] [address],[place] [address] 09/15/2021 10:55:19 09/15/2021 11:57:51 Acute lower urinary tract infection 663653788 R30.0 Candidal vulvovaginitis 30639884 B37.3 [id number] MD DAYSI Torres MD [address] [place] [address],[place] [address] 02/23/2022 08:44:07 02/23/2022 10:07:01 Specialized medical examination 39839218 Z01.419 Screening for malignant neoplasm of rectum 426815195 Z12.12 Screening mammography 24 754237 Z12.31 Menopausal syndrome 1237 51499 N95.8 Atrophic vaginitis 40860 000 N95.2 Candidal vulvovaginitis 35175431 B37.31 [id number] MD DAYSI Torres MD [address] [place] [address],[place] [address] 07/18/2022 11:21:31 07/18/2022 12:59:47 Acute lower urinary tract infection 088751291 R30.0 Candidal vulvovaginitis 35296494 B37.31 [id number] MD DAYSI Torres MD [address] [place] [address],[place] [address] 09/22/2022 08:21:35 09/22/2022 10:54:22 Candidal vulvovaginitis 67788935 B37.31 [id number] MD DAYSI Torres MD [address] [place] [address],[place] [address] 12/29/2022 07:58:50 12/29/2022 09:02:58 Candidal vulvovaginitis 80297518 B37.31 [id number] MD DAYSI Torres MD [address] [place] [address],[place] [address] 02/27/2023 08:37:07 02/28/2023 10:17:55 Specialized medical examination 57798421 Z01.419 Screening for malignant neoplasm of rectum 467523784 Z12.12 Screening mammography 24 155933 Z12.31 Menopausal syndrome 1237 50136 N95.8 Atrophic vaginitis 17037 000 N95.2 [id number] MD DAYSI Torres MD [address] [place] [address],[place] [address] 12/04/2023 13:16:55 12/04/2023 14:25:20 Candidal vulvovaginitis 04807161 B37.31 Acute lowe r urinary tract infection 835253638 R30.0 [id number] MD DAYSI Torres MD [address] [facility],[address] [place] [address] 06/11/2024 07:48:46 06/11/2024 13:55:34 Atrophic vaginitis 54232849 N95.2 Specialize d medical examination 82148496 Z01.419 Screening for malignant neoplasm of rectum 094664563 Z12.12 Screening mammography 24 082190 Z12.31 Candidal vulvovaginitis 21860290 B37.31 Health Concerns Section Related Observation LastModified by Organization Detai ls LastModified Time None Recorded Concern Status LastModified by Organization Details LastModified Time None Recorded Advance Directives Directive None Recorded Payers Encounter Date Sequence Insurance Name Policy Number Policy Coreas Covered Member ID Coreas Member ID Guarantor Name 09/22/2022 1 [employer] PLAN (POS) [id number] Meeta Chen Virgilio [id number] Meeta Virgilio 12/29/2022 1 [employer] (PPO) [id number] Meeta Siddiqui Virgilio [id number] Meeta Virgilio 02/27/2023 1 [employer] (PPO) [id number] Meeta M Virgilio [id number] Meeta Virgilio 12/04/2023 1 [employer] (PPO) [id number] Meeta M Virgilio [id number] Meeta Virgilio 06/11/2024 1 [employer] - GIC INDEMNITY PLAN (PPO) [id number] Meeta Virgilio [id number] Meeta Virgilio Notes Date Note Type Note Provider Name and Address Organization Details Recorded Time 09/22/2022 text/html She is here for a few day histroy of vaginal pruritus. She notes that her vaginal yeast infection cleared up completely after treatment in 07/14, and only recently returned. she is using the estradiol vaginal cream nightly, now. Daysi Mendoza MD [address], [place], [address], [place] - [facility], 09/22/2022 09:10:11 12/29/2022 text/html She is here for a complaint of vaginal pruritus and discharge. Daysi Mendoza MD [address], [place], [address], [place] - [facility], 12/29/2022 08:43:54 02/27/2023 text/html She is here for annual, had issues with recurring vaginitis this yea, would like wet selina just to be certain noting is wrong, she has some minor discomfort vaginally. Note from 2021: She is here for annual exam, she took a leftover diflucan 3 weeks ago, requests wet seilna though she feels improved.She is doing well on her estradiol vaginal cream, elects to continue. Daysi Mendoza MD [address], [place], [address], [place] - [facility], 02/27/2023 09:08:35 12/04/2023 text/html She is here for a few day histroy of vaginal pruritus. she was treated for yeast with diflucan in 05/17 after taking antibiotics, and also in 07/15, the problems resolved but now it is back. Daysi Mendoza MD [address], [place], [address], [place] - [facility], 12/04/2023 15:43:00 06/11/2024 text/html She is here for annual, doing well on estradiol cream, wonders if she has a yeast infection. Note from 2022: She is here for annual, had issues with recurring vaginitis this yea, would like wet selina just to be certain noting is wrong, she has some minor discomfort vaginally. Daysi Mendoza MD [address], [place], [address], [place] - [facility], 06/11/2024 08:23:18 OBGyn Episode No OBEpisode recorded.
== END 2024-09-26 15:04 | disposition home or self-care (01) ==
LOC: HO.HMCFM 14:13
PROVIDERS: PCP Physician Assistant; Visit Provider Physician Assistant
DX: M85.80 Other specified disorders of bone density and structure, unspecified site (principal); E78.5 Hyperlipidemia, unspecified; R53.83 Other fatigue

== ENCOUNTER → 2024-09-26 14:12 | Outpatient (BNVA) | payer OTHER, SELFPAY | PROVIDERS: PCP Physician Assistant; Visit Provider Physician Assistant | DX: E55.9 Vitamin D deficiency, unspecified (principal); E78.5 Hyperlipidemia, unspecified; M85.80 Other specified disorders of bone density and structure, unspecified site; R53.83 Other fatigue | CPT/HCPCS: 96127 ==

== ENCOUNTER 2024-10-01 07:33 | Outpatient (REF) | payer OTHER, SELFPAY ==
--- OUTSIDE RECORDS SUMMARY | 2024-10-01 07:36 | XMS_ITS | Data Portability ---
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 Plan of Treatment Reminders Order Date Submit Date Provider Last Modified By Organization Details Last Modified Time Details Appointments None recorded. Lab cytology report, thin prep, smear or scraping, cervical or vaginal 2024 025 KRYSTA [facility] (Centralized Electronic Ordering - All Locations), Patient Can Go To The Location Of Their Choice, [id number] 5 14:16:15 wet mount, vaginal 2024 025 [email or web address] 1 In-Office Order, Internal Use Only DO Not Attach Compendium DO Not Attach Compendium, Do Not Delete/merge, [id number] 5 08:21:47 hemoglobin , gastrointe stinal, stool 2024 025 [email or web address] 1 In-Office Order, Internal Use Only DO Not Attach Compendium DO Not Attach Compendium, Do Not Delete/merge, [id number] 5 08:16:55 urinalysis , dipstick 2023 024 [email or web address] 1 In-Office Order, Internal Use Only DO Not Attach Compendium DO Not Attach Compendium, Do Not Delete/merge, [id number] 4 15:41:43 culture, urine 2023 024 KRYSTA [facility] (Centralized Electronic Ordering - All Locations), Patient Can Go To The Location Of Their Choice, [id number] 4 20:06:31 wet mount, vaginal 2023 024 [email or web address] 1 In-Office Order, Internal Use Only DO Not Attach Compendium DO Not Attach Compendium, Do Not Delete/merge, [id number] 4 13:45:28 pap test, thinprep, cervical 2022 023 [email or web address] [facility] (Centralized Electronic Ordering - All Locations), Patient Can Go To The Location Of Their Choice, [id number] 3 07:25:31 fecal occult blood, stool 2022 023 [email or web address] 1 In-Office Order, Internal Use Only DO Not Attach Compendium DO Not Attach Compendium, Do Not Delete/merge, [id number] 3 09:05:43 wet mount, vaginal 2022 023 [email or web address] 1 In-Office Order, Internal Use Only DO Not Attach Compendium DO Not Attach Compendium, Do Not Delete/merge, [id number] 3 08:30:36 wet mount, vaginal 2022 023 [email or web address] 1 In-Office Order, Internal Use Only DO Not Attach Compendium DO Not Attach Compendium, Do Not Delete/merge, [id number] 3 08:56:58 Referral None recorded. Procedures None recorded. Surgeries None recorded. Imaging MAMMO, screening, digital, bilateral - Breast Aspiration and/or Biopsy if needed 2024 025 [email or web address], [address], [address], [place], [address], 5 11:37:04 bone density 2022 023 [facility] Orders, [address], [address], [place], [address], 4 09:52:41 MAMMO, screening, digital, bilateral - Breast Aspiration and/or Biopsy if needed 2022 023 [facility] Orders, [address], [address], [place], [address], 4 08:02:42 Medication Orders estradiol 0.01% (0.1 mg/gram) vaginal cream 2024 025 [facility] [address] [place], [address], 5 08:16:56 fluconazol e 150 mg tablet 2023 025 [facility], [address] [place], [address], 5 07:56:51 estradiol 0.01% (0.1 mg/gram) vaginal cream 2022 023 [facility], [address] [place], [address], 3 09:07:18 fluconazol e 150 mg tablet 2022 023 [email or web address] [address] [place], [address], 5 07:56:47 terconazol e 0.4 % vaginal cream 2022 023 [facility] #0859, [address] [place] [address], [address], 5 07:56:58 Patient TargetsNo targets recorded. Patient Instructions Encounter Date Encounter Id Patient Instructions Last Modified By Organization Details Last Modified Time 09/22/2022 [id number] vaginal yeast infection: care instructions Not available [...] weeks. [email or web address] Not available 09/22/2022 08:59:54 12/29/2022 [id number] vaginal yeast infection: care instructions [facility] Not available 12/29/2022 08:30:36 She is here for a complaint of vaginal pruritus and discharge. She has symptomatic monilia, rx diflucan, call if symptoms persist or recur. Not available 12/29/2022 08:43:27 02/27/2023 [id number] learning about healthy weight [facility] Not available 02/27/2023 09:05:40 She is here [...] discovers any new mass in the breast. [facility] Not available 02/27/2023 09:07:02 12/04/2023 [id number] urinary tract infection in women information [facility] Not available 12/04/2023 15:41:43 vaginal yeast infection: care instructions [facility] Not available 12/04/2023 13:45:16 She is here [...] request. cristina Not available 12/04/2023 15:42:39 06/11/2024 [id number] learning about healthy weight [facility] Not available [...] DO Not Attach Compendium, Do Not Delete/merge, [id number] 09/22/2022 08:47:54 09/23/1909/22/2022 wet mount , vagin al Trichomonas negati ve Not Available In-Office Order Internal Use Only DO Not Attach Compendium DO Not Attach Compendium, Do Not Delete/merge, [id number] 09/22/2022 08:47:54 09/23/1909/22/2022 wet mount , vagin al Hyphae positi ve Not Available In-Office Order Internal Use Only DO Not Attach Compendium DO Not Attach Compendium, Do Not Delete/merge, [id number] 09/22/2022 08:47:54 09/23/19 23 09/22/2022 wet mount , vagin al atrophic epithelium positi ve Not Available In-Office Order Internal Use Only DO Not Attach Compendium DO Not Attach Compendium, Do Not Delete/merge, [id number] 09/22/2022 08:47:54 12/30/19 23 12/29/2022 wet mount , vagin al Clue Cells negati ve Not Available In-Office Order Internal Use Only DO Not Attach Compendium DO Not Attach Compendium, Do Not Delete/merge, [id number] 12/29/2022 08:30:08 12/30/19 23 12/29/2022 wet mount , vagin al Trichomonas negati ve Not Available In-Office Order Internal Use Only DO Not Attach Compendium DO Not Attach Compendium, Do Not Delete/merge, [id number] 12/29/2022 08:30:08 12/30/19 23 12/29/2022 wet mount , vagin al Hyphae positi ve Not Available In-Office Order Internal Use Only DO Not Attach Compendium DO Not Attach Compendium, Do Not Delete/merge, [id number] 12/29/2022 08:30:08 12/30/19 23 12/29/2022 wet mount , vagin al atrophic epithelium positi ve Not Available In-Office Order Internal Use Only DO Not Attach Compendium DO Not Attach Compendium, Do Not Delete/merge, [id number] 12/29/2022 08:30:08 02/28/20 23 02/27/2023 [facility] CYTOL OGY results Swathi nt Name: MEETA HOFFMAN florecita : [id number] (Age: 62) Lab Acces nona #: [id number] Colle ction Date: 2022 Acces nona Date: 2022 Sign Out Date: 03/03 Tissu e Sourc e: 1: THINP REP FORESTRY LABORER PAP TEST, CERVI YANG: Final Diagn osis: [...] ThinP rep Imagi ng Syste m with masseil ramon or josias ha Perfo rmed at [facility] ate Refer ence Labor atory depar tment of Cytol ogy, [address] [place] Clini yang Histo ry (othe r): Z01.4 19, ROTUI NE SCREE N LPS 03/04 NEG Phone #: [phone], On-Ca ll Patho logis t: [id number] Not Available [facility] (Centralized Electronic Ordering - All Locations) Patient Can Go To The Location Of Their Choice, [id number] 03/03/2023 10:22:04 02/28/20 23 02/27/2023 fecal occul t blood , stool Occult Blood negati ve Not Available In-Office Order Internal Use Only DO Not Attach Compendium DO Not Attach Compendium, Do Not Delete/merge, [id number] 02/27/2023 08:39:16 12/04/19 24 12/05/2023 URINE CULTU RE, ROUTI NE urine culture, routine Final report Not Available [facility] ([facility]) [address] [facility], [place], [address], 12/05/2023 20:06:31 12/04/19 24 12/05/2023 URINE CULTU RE, ROUTI NE result 1 No growth Not Available [facility] ([facility]) [address] [facility], [place], [address], 12/05/2023 20:06:31 12/04/19 24 12/04/2023 urina lysis [...] DO Not Attach Compendium, Do Not Delete/merge, [id number] 12/04/2023 15:32:58 12/04/19 24 12/04/2023 urina lysis , dipst ick JENIFER Negati ve Not Available In-Office Order Internal Use Only DO Not Attach Compendium DO Not Attach Compendium, Do Not Delete/merge, [id number] 12/04/2023 15:32:58 12/04/19 24 12/04/2023 wet mount , vagin al Clue Cells negati ve Not Available In-Office Order Internal Use Only DO Not Attach Compendium DO Not Attach Compendium, Do Not Delete/merge, [id number] 12/04/2023 13:45:08 12/04/19 24 12/04/2023 wet mount , vagin al Trichomonas negati ve Not Available In-Office Order Internal Use Only DO Not Attach Compendium DO Not Attach Compendium, Do Not Delete/merge, [id number] 12/04/2023 13:45:08 12/04/19 24 12/04/2023 wet mount , vagin al Hyphae positi ve Not Available In-Office Order Internal Use Only DO Not Attach Compendium DO Not Attach Compendium, Do Not Delete/merge, [id number] 12/04/2023 13:45:08 12/04/19 24 12/04/2023 wet mount , vagin al atrophic epithelium positi ve Not Available In-Office Order Internal Use Only DO Not Attach Compendium DO Not Attach Compendium, Do Not Delete/merge, [id number] 12/04/2023 13:45:08 06/11/19 25 06/13/2024 IGP, RFX APTIM A HPV ASCU diagnosis: Commen t NEGAT DA FOR INTRA EPITH ELIAL LESIO N OR JOHANNY BAUTISTA . Not Available [facility] ([facility]) [address] [facility], [place], [address], 06/13/2024 14:16:15 06/11/19 25 06/13/2024 IGP, RFX APTIM A HPV ASCU specimen adequacy: Commen t Satis facto ry for evalu ation . Not Available [facility] ([facility]) [address] [place], [address], 06/13/2024 14:16:15 06/11/19 25 06/13/2024 IGP, RFX APTIM A HPV ASCU clinician provided ICD10: Eddie verdugo Z01.4 19 Not Available [facility] ([facility]) [address] [place], [address], 06/13/2024 14:16:15 06/11/19 25 06/13/2024 IGP, RFX APTIM A HPV ASCU performed by: Emily Amin (ASCP ) Not Available [facility] ([facility]) [address] [place], [address], 06/13/2024 14:16:15 06/11/19 25 06/13/2024 IGP, RFX APTIM A HPV ASCU . . Not Available [facility] ([facility]) [address] [place], [address], 06/13/2024 14:16:15 06/11/19 25 06/13/2024 IGP, RFX [...] ts do occur . Not Available [facility] ([facility]) [address] [place], [address], 06/13/2024 14:16:15 06/11/19 25 06/13/2024 IGP, RFX APTIM A HPV ASCU test methodology: Commen t This liqui d based ThinP rep(R ) pap test was carlin poon with the use of an image guide barron siddiqui. Not Available [facility] ([facility]) [address] [facility], [place], [address], 06/13/2024 14:16:15 06/11/19 25 06/13/2024 IGP, RFX APTIM A HPV ASCU . Commen t The HPV DNA refle x crite thao were not met with this speci men resul t there fore, no HPV testi ng was perfo rmed. Not Available [facility] ([facility]) [address] [facility], [place], [address], 06/13/2024 14:16:15 06/11/19 25 06/11/2024 wet mount [...] 25 06/11/2024 hemog lobin , gastr ointe gasepr l, stool Occult Blood negati ve Not Available In-Office Order Internal Use Only DO Not Attach Compendium DO Not Attach Compendium, Do Not Delete/merge, 2025 07:58:57 08/04/19 24 08/03/2023 MAMMO , scree harshil, digit al, bilat eral No observ ation record ed. [facility] [place] [address] [place] [place], [address], 08/07/2023 07:55:53 08/10/19 24 08/03/2023 bone densi ty No observ ation record ed. [email or web address] [facility] [place] [address] [place], [address], 10/01/2024 07:29:57 Result Notes None recorded. Problems Name Problem SNOMED Code Status Onset Date Resolution Date Notes Provider Name and Address Organization Details Recorded Time Osteopenia 759179968 Active 2002 was given Fosamax for 3 to 4 years, but developed gastritis had a colonoscop y Daysi Mendoza MD [email or web address], [place], [address], [place] [facility], 5 10:15:28 Mammograph y abnormal 940453768 Active Daysi Mendoza MD [email or web address], [place], [address], [place] [facility], 6 08:09:59 Lesion of vulva 955597624 Active Daysi Mendoza MD [address], [place], 5, [place] - [facility], 5 10:42:11 Atrophic vaginitis 87561390 Active 2020 1 finger introitus, NEEDS SMALLEST SPECULUM Daysi Mendoza MD [address], [place], 5, [place] [facility], 3 09:08:02 Fatigue 14998450 Active Daysi Mendoza MD [address], [place], 5, [place] - [facility], 5 10:15:28 On examinatio n - lymphadeno reyes Active Daysi Mendoza MD [address], [place], [address], [place] [facility], 5 10:15:28 Menopausal syndrome 869419861 Active Daysi Mendoza MD [address], [facility] [place], [address], [place] [facility], 5 10:15:28 Problem Notes None recorded. Procedures Surgical History Date Name Laterality Status Provider Name and Address Organization Details Recorded Time 08/23/19 24 Most Recent Mammogram completed Khushboo Lepe in [facility], 12/04/2023 13:29:27 12/29/19 18 excision of bunion completed Khushboo Carey [place] [facility], 02/19/2020 09:31:11 04/23/20 15 Vulvar Biopsy completed Daysi Mendoza MD [address], [place], [address], [place] [facility], 04/23/2015 10:17:59 04/24/18 78 Other completed Khushboo Carey [place] [facility], 08/06/2013 11:16:16 04/24/18 69 Other completed Khushboo Carey [place] [facility], 04/20/2016 09:46:09 04/24/18 68 Tonsillectomy completed Khushboo Carey [place] [facility], 08/06/2013 11:16:16 Imaging Results None recorded. Procedure Notes None recorded. Medical Equipment None Reported. Allergies Allergen ID Allergen Name Allergen Category Reaction Reaction Severity Criticality Documentation Date Start Date Code Code System Note Provider Name and Address Organization Details Recorded Time 72327 Macrobid medicatio n rash Not available Not available 08/06/2013 67547 1 RxNorm DEWAYNE Valadez in [facility], 4 11:16:16 85670 amoxicill in medicatio n itching Not available Not available 08/06/2013 723 RxNorm [place] Holloway in [facility], 3 11:36:40 45408 vancomyci n medicatio n hives moderate Not available 05/20/2020 85193 RxNorm [place] Holloway in [facility], 1 10:38:34 38006 Bactrim medicatio n rash moderate Not available 01/29/2021 40707 9 RxNorm Daysi Mendoza MD [address] [facility], [address], [place], [address] , DEWAYNE Lepe in [facility], 1 08:19:29 53871 butoconaz ole nitrate medicatio n muscle cramps moderate Not available 02/23/2021 26440 RxNorm Sever e abd cramp s when used. [place] Holloway in [facility], 1 08:29:33 Medications Name Sig Start [...] THEN 2 TABS DAILY FOR 3 DAYS. 11/02 /2021 completed Not Available Not Available Not Available [...] Updated DateTime 5 160.02 cm 19.7 kg/m2 32234.4 7 g 84 /min 97.2 [degF] 105 mm[Hg] 56 mm[Hg] Khushboo Carey [place] [facility], 5 07:55:20 Date Recorded Body height Body mass index (BMI) Body weight Systolic blood pressure Diastolic blood pressure Provider Name and Address Organization Details Last Updated DateTime 09/22/2022 160.02 cm 19.7 kg/m2 23486.75 g 142 mm[Hg] 79 mm[Hg] Michelle Samuels [place] - [facility], 3 08:32:20 Date Recorded Body height Body mass index (BMI) Body weight Body temperature Heart rate Systolic blood pressure Diastolic blood pressure Provider Name and Address Organization Details Last Updated DateTime 4 160.02 cm 19.5 kg/m2 77708.8 8 g 97.3 [degF] 86 /min 119 mm[Hg] 54 mm[Hg] Khushboo Lepe in [facility], 4 13:26:58 Date Recorded Body height Body mass index (BMI) Body weight Heart rate Systolic blood pressure Diastolic blood pressure Provider Name and Address Organization Details Last Updated DateTime 3 160.02 cm 18.4 kg/m2 74947.6 1 g 84 /min 134 mm[Hg] 67 mm[Hg] Michelle Lepe in [facility], 3 08:04:03 Date Recorded Body height Body mass index (BMI) Body weight Heart rate Systolic blood pressure Diastolic blood pressure Provider Name and Address Organization Details Last Updated DateTime 3 160.02 cm 19.3 kg/m2 41476.5 7 g 87 /min 124 mm[Hg] 65 mm[Hg] Michelle Lepe in [facility], 3 08:46:04 Social History Question Answer Notes LastModified by Organizat ion Details LastModified Time Tobacco Smoking Status Never Smoker Not Available [facility] 02/25/2020 03:19:37 What Is Your Level Of [...] Type Of Diet Are You Following? REGULAR [id number] Information n ot available 02/25/2020 Which Illicit Or Recreational Drugs Have You Used? No [id number] Information not available 02/25/2020 Do You Reside In Or Have You Traveled To An Area Where Ebola Virus Transmission Is Active? No [id number] Information not available 02/25/2020 Education 2 Year College Information not available 08/06/2013 What Is The Highest Grade Or Level Of School You Have Completed Or The Highest Degree You Have Received? [id number] Information not available 01/18/2021 Who Is Your [...] available 01/18/2021 Are You Sexually Active? No [id number] Information not available 02/25/2020 How Much Tobacco Do You Smoke? No [id number] Information not available 02/25/2020 General Stress Level Medium Information not available 12/04/2023 How Many Years Have You Smoked Tobacco? 0 [id number] Information not available 02/25/2020 Have You Recently [...] is your level of alcohol consumption? None [id number] Information not available 02/25/2020 Do you or have you ever used smokeless tobacco? Never used smokeless tobacco Information not available 02/19/2020 Are you currently employed? 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 [id number] Information not available 02/25/2020 Do you or have you ever used e-cigarettes or vape? Never used electronic cigarettes Information not available 02/19/2020 What is your exercise level? Occasional [email or web address] Information not available 02/23/2021 Mental Status Question Answer Note LastModified by Organization D etails LastModified Time Do you feel stressed (tense, restless, nervous, or anxious, or unable to sleep at night)? [id number] Information not available 01/18/2021 Family History Relationship [...] for MyRisk panel N Autoimmune Condition N Kidney or Bladder Problems N Thyroid Problems N Depression N Lung Disease N GI Problems N Defects or Inherited Disease N Anemia Y History of Ovarian Cancer N History of Breast Cancer N ADA exposure [...] vaccine, UNSPECIFIED 1 completed [place] Holloway in [facility], 02/27/2023 08:45:10 SARS-COV-2 (COVID-19) vaccine, UNSPECIFIED 1 completed [place] Holloway in [facility], 02/27/2023 08:45:10 COVID-19, mRNA, LNP-S, PF, 30 mcg/0.3 mL dose 1 completed [place] Holloway in [facility], 02/27/2023 08:45:10 COVID-19, mRNA, LNP-S, PF, 30 mcg/0.3 mL dose 1 completed [place] Holloway in [facility], 02/27/2023 08:45:09 COVID-19, mRNA, LNP-S, PF, 30 mcg/0.3 mL dose 1 completed DEWAYNE Holloway in [facility], 02/27/2023 08:45:10 COVID-19, mRNA, LNP-S, PF, 30 mcg/0.3 mL dose 1 completed DEWAYNE Holloway in [facility], 02/27/2023 08:45:10 Td (adult), 2 Lf tetanus toxoid, preservative free, adsorbed 5 completed DEWAYNE Holloway in [facility], 02/27/2023 08:45:10 Past Encounters Encounter ID Performer Location Encounter Start Date Encounter Closed Date Diagnosis/Indication Diagnosis SNOMED-CT Code Diagnosis ICD10 Code Diagnosis Note [id number] MD DAYSI TorresAN MD [address] [place] [address],[address] [place] [address] 08/06/2013 10:36:44 08/08/2013 13:42:07 Fatigue 79368899 Venereal d isease screening 641537236 On examina tion - lymphadenopathy 705346630 Menopausal syndrome 670278228 [id number] MD DAYSI Torres MD [address] [place] [address], [place] [address] 02/11/2014 08:59:48 02/11/2014 11:16:46 Specialized medical examination 06324419 Screening mammography 73671518 Osteopenia 530116678 [id number] MD DAYSI Torres MD [address] [place] [address], [place] [address] 03/05/2014 08:57:49 03/05/2014 10:21:00 Osteopenia 962196783 [id number] MD DAYSI Torres MD [address] [place] [address], [place] [address] 04/14/2015 07:47:48 04/14/2015 11:40:53 Specialized medical examination 26074015 Z01.419 Screening for malignant neoplasm of rectum 607201216 Z12.12 Screening mammography 24 318669 Z12.31 [id number] MD DAYSI Torres MD [address] [place] [address], [place] [address] 04/23/2015 09:24:17 04/23/2015 11:38:56 Lesion of vulva 332845033 N90.89 [id number] MD DAYSI Torres MD [address] [place] [address], [place] [address] 04/20/2016 09:17:29 04/20/2016 11:17:19 Specialized medical examination 70875897 Z01.419 Screening mammography 24 799963 Z12.31 Osteopenia 416278436 M85 .851 [id number] MD DAYSI Torres MD [address] [place] [address], [place] [address] 07/07/2016 15:09:21 07/07/2016 16:16:42 Osteopenia 388888733 M85.851 [id number] MD DAYSI Torres MD [address] [place] [address] [place] [address] 08/08/2017 08:18:23 08/08/2017 12:59:38 Specialized medical examination 53739219 Z01.419 Screening for malignant neoplasm of rectum 259167404 Z12.12 Screening mammography 24 183008 Z12.31 [id number] MD DAYSI Torres MD [address] [place] [address] [place] [address] 08/10/2018 09:45:39 08/10/2018 14:51:28 Candidal vulvovaginitis 44638511 B37.3 [id number] MD DAYSI Torres MD [address] [place] [address] [place] [address] 08/28/2018 08:49:18 08/28/2018 10:48:29 Specialized medical examination 45697238 Z01.419 Screening for malignant neoplasm of rectum 216423860 Z12.12 Screening mammography 24 076767 Z12.31 Screening for osteoporosis 272030815 Z13.820 [id number] MD DAYSI Torres MD [address] [place] [address] [place] [address] 02/19/2020 09:21:56 02/19/2020 10:32:31 Specialized medical examination 78927059 Z01.419 Screening mammography 24 653358 Z12.31 Acute lowe r urinary tract infection 903380862 R30.0 Mass of left breast 1224 203241 6324859 N63.25 Candidal vulvovaginitis 05523687 B37.3 [id number] MD DAYSI Torres MD [address] [place] [address] [place] [address] 02/26/2020 08:51:09 02/26/2020 09:38:21 Venereal disease screening 140316714 Z11.3 Candidal vulvovaginitis 33870519 B37.3 Vulvitis 32472299 N76.2 B96.89 [id number] MD DAYSI Torres MD [address] [place] [address],[place] [address] 05/20/2020 10:35:25 05/20/2020 12:03:54 Candidal vulvovaginitis 43826475 B37.3 Vulvitis 96355822 N76.2 B96.89 [id number] MD DAYSI Torres MD [address] [place] [address],[place] [address] 05/21/2020 09:02:57 05/21/2020 11:24:36 Candidal vulvovaginitis 87575510 B37.3 Vulvitis 48742338 N76.2 B96.89 [id number] MD DAYSI Torres MD [address] [place] [address],[place] [address] 06/04/2020 13:18:16 06/04/2020 14:18:15 Candidal vulvovaginitis 48304463 B37.3 Atrophic vaginitis 86591 000 N95.2 [id number] MD DAYSI Torres MD [address] [place] [address],[place] [address] 06/15/2020 09:09:33 06/15/2020 10:46:34 Candidal vulvovaginitis 77628539 B37.3 [id number] MD DAYSI Torres MD [address] [place] [address],[place] [id number] 07/13/2020 13:00:24 07/13/2020 14:08:37 Acute lower urinary tract infection [id number] R30.0 Candidal vulvovaginitis 63070903 B37.3 [id number] MD DAYSI Torres MD [address] [place] [address],[place] [address] 07/23/2020 09:21:48 07/23/2020 10:47:42 Acute lower urinary tract infection [id number] R30.0 Candidal vulvovaginitis 17613387 B37.3 [id number] MD DAYSI Torres MD [address] [place] [address],[place] [address] 10/05/2020 10:55:06 10/05/2020 13:23:22 Acute lower urinary tract infection [id number] R30.0 Vaginal discharge 913218 006 N89.8 [id number] MD DAYSI Torres MD [address] [place] [address],[place] [address] 01/18/2021 13:19:59 01/18/2021 14:38:09 Acute lower urinary tract infection [id number] R30.0 Candidal vulvovaginitis 17241336 B37.3 [id number] MD DAYSI Torres MD [address] [place] [address], [place] [address] 02/23/2021 08:21:27 02/23/2021 10:35:37 Specialized medical examination 48642967 Z01.419 Screening for malignant neoplasm of rectum 958926115 Z12.12 Screening mammography 24 436788 Z12.31 Acute lowe r urinary tract infection 179975268 R30.0 Vaginal discharge 834806 006 N89.8 Atrophic vaginitis 71334 000 N95.2 15077 MD DAYSI Torres MD [address] [place] [address], [place] [address] 06/11/2021 11:24:24 06/11/2021 12:49:21 Acute lower urinary tract infection 538452568 R30.0 Candidal vulvovaginitis 57016642 B37.3 [id number] MD DAYSI Torres MD [address] [place] [address],[place] [address] 09/15/2021 10:55:19 09/15/2021 11:57:51 Acute lower urinary tract infection 512258796 R30.0 Candidal vulvovaginitis 40154210 B37.3 [id number] MD DAYSI Torres MD [address] [place] [address],[place] [address] 02/23/2022 08:44:07 02/23/2022 10:07:01 Specialized medical examination 63810742 Z01.419 Screening for malignant neoplasm of rectum 269753819 Z12.12 Screening mammography 24 208791 Z12.31 Menopausal syndrome 1237 98594 N95.8 Atrophic vaginitis 47231 000 N95.2 Candidal vulvovaginitis 59531853 B37.31 [id number] MD DAYSI Torres MD [address] [place] [address],[place] [address] 07/18/2022 11:21:31 07/18/2022 12:59:47 Acute lower urinary tract infection 931362286 R30.0 Candidal vulvovaginitis 86272165 B37.31 [id number] MD DAYSI Torres MD [address] [place] [address],[place] [address] 09/22/2022 08:21:35 09/22/2022 10:54:22 Candidal vulvovaginitis 56220126 B37.31 [id number] MD DAYSI Torres MD [address] [place] [address],[place] [address] 12/29/2022 07:58:50 12/29/2022 09:02:58 Candidal vulvovaginitis 65617045 B37.31 [id number] MD DAYSI Torres MD [address] [place] [address],[place] [address] 02/27/2023 08:37:07 02/28/2023 10:17:55 Specialized medical examination 58099118 Z01.419 Screening for malignant neoplasm of rectum 541454771 Z12.12 Screening mammography 24 041610 Z12.31 Menopausal syndrome 1237 11608 N95.8 Atrophic vaginitis 19286 000 N95.2 [id number] MD DAYSI Torres MD [address] [place] [address],[place] [address] 12/04/2023 13:16:55 12/04/2023 14:25:20 Candidal vulvovaginitis 41691053 B37.31 Acute lowe r urinary tract infection 199087752 R30.0 [id number] MD DAYSI Torres MD [address] [facility],[address] [place] [address] 06/11/2024 07:48:46 06/11/2024 13:55:34 Atrophic vaginitis 42097740 N95.2 Specialize d medical examination 97235286 Z01.419 Screening for malignant neoplasm of rectum 022170329 Z12.12 Screening mammography 24 354478 Z12.31 Candidal vulvovaginitis 39294071 B37.31 Health Concerns Section Related Observation LastModified by Organization Detai ls LastModified Time None Recorded Concern Status LastModified by Organization Details LastModified Time None Recorded Advance Directives Directive None Recorded Payers Encounter Date Sequence Insurance Name Policy Number Policy Coreas Covered Member ID Coreas Member ID Guarantor Name 09/22/2022 1 [employer] (POS) [id number] Meeta Cem Virgilio [id number] Meeta Virgilio 12/29/2022 1 [employer] (PPO) [id number] Meeta Siddiqui Virgilio [id number] Meeta Virgilio 02/27/2023 1 [employer] (PPO) [id number] Meeta M Virgilio [id number] Meeta Virgilio 12/04/2023 1 [employer] (PPO) [id number] Meeta M Virgilio [id number] Meeta Virgilio 06/11/2024 1 [employer] - [facility] INDEMNITY PLAN (PPO) [id number] Meeta Virgilio [id number] Meeta Virgilio Notes Date Note Type Note Provider Name and Address Organization Details Recorded Time 09/22/2022 text/html She is here for a few day histroy of vaginal pruritus. She notes that her vaginal yeast infection cleared up completely after treatment in 07/14, and only recently returned. she is using the estradiol vaginal cream nightly, now. Daysi Mendoza MD [email or web address], [place], [address], [place] [facility], 09/22/2022 09:10:11 12/29/2022 text/html She is here for a complaint of vaginal pruritus and discharge. Daysi Mendoza MD [address], [place], [address], [place] - [facility], 12/29/2022 08:43:54 02/27/2023 text/html She is here for annual, had issues with recurring vaginitis this yea, would like wet selina just to be certain noting is wrong, she has some minor discomfort vaginally. Note from 2021: She is here for annual exam, she took a leftover diflucan 3 weeks ago, requests wet selina though she feels improved.She is doing well on her estradiol vaginal cream, elects to continue. Daysi Mendoza MD [address], [place], [address], [place] - [facility], 02/27/2023 09:08:35 12/04/2023 text/html She is here for a few day histroy of vaginal pruritus. she was treated for yeast with diflucan in 05/17 after taking antibiotics, and also in 07/15, the problems resolved but now it is back. Daysi Mendoza MD [address], [place], [address], [place] - [facility], 12/04/2023 15:43:00 06/11/2024 text/html She is here for annual, doing well on estradiol cream, wonders if she has a yeast infection. Note from 2022: She is here for annual, had issues with recurring vaginitis this yea, would like wet selina just to be certain noting is wrong, she has some minor discomfort vaginally. Daysi Mendoza MD [address], [place], [address], [place] - [facility], 06/11/2024 08:23:18 OBGyn Episode No OBEpisode recorded.
[2024-10-01 11:21] LABS: Appearance Urine Clear; Color Urine Yellow; Glucose Urine UA Negative (Negative); Leukocyte Esterase Urine Negative (Negative); Nitrite Urine Negative (Negative); PH 5.5 (5.0-9.0); Specific Gravity - Urine 1.015 (1.005-1.025); Urine Blood Negative (Negative); Urine Ketones Negative (Negative); Urine Protein Negative (Neg-Trace)
[2024-10-01 11:27] LABS: MANUAL DIFF FLAG NO
[2024-10-01 11:32] LABS: Basophils Percent Auto 0.7 % (0-2); Eosinophils Absolute Auto 0.3 X10*3/uL (0.0-0.4); Eosinophils Percent Auto 5.4 % (0-4); Hematocrit 40.4 % (37.0-47.0); Imm Gran Abs Auto 0.01 X10*3/uL (0.00-0.03); Imm Gran Pct Auto 0.2 % (0.0-0.4); Lymphocytes Absolute Auto 1.6 X10*3/uL (1.2-4.9); Lymphocytes Percent Auto 26.9 % (20-40); Mean Corpuscular HGB Conc 32.2 g/dl (31.0-35.0); Mean Corpuscular Hemoglobin 31.2 pg (27.0-33.0); Mean Corpuscular Volume 96.9 fL (80.0-98.0); Mean Platelet Volume 10.6 fL (9.4-12.3); Monocytes Absolute Auto 0.4 X10*3/uL (0.1-1.2); Monocytes Percent Auto 7.2 % (2-11); Neutrophils Absolute Auto 3.6 x10*3/uL (2.0-8.3); Neutrophils Percent Auto 59.6 % (45-73); Platelet Count 288 X10*3/uL (160-400); Red Blood Count 4.17 X10*6/uL (4.20-5.50); Red Cell Distribution Width 12.8 % (11.0-16.0)
[2024-10-01 12:01] LABS: Alanine Aminotransferase 19 U/L (0-31); Albumin Level 4.5 g/dL (3.5-5.0); Alkaline Phosphatase 49 U/L (39-117); Anion Gap 10 (12-20); Aspartate Amino Transferase 24 U/L (5-31); Bilirubin Total 0.7 mg/dL (0.0-1.0); Blood Urea Nitrogen 17 mg/dL (9-16); Calcium 9.6 mg/dL (8.4-10.2); Carbon Dioxide 30 mmol/L (22-29); Chloride 104 mmol/L (96-108); Cholesterol 247 mg/dL (<200); Estimated Glomerular Filt Rate > 60; Glucose Fasting 85 mg/dL (60-99); HDL Cholesterol 87 mg/dL (>40); Iron 100 mcg/dL (30-160); LDL Cholesterol Calculated 144 mg/dL (<100); Magnesium 2.2 mg/dL (1.6-2.6); Percent Iron Saturation 32 % (15-50); Potassium 3.9 mmol/L (3.3-5.1); Sodium 140 mmol/L (135-145); Total Iron Binding Capacity 308 mcg/dL (228-428); Triglycerides 83 mg/dL (<150); Unsaturated Iron Binding 208 ug/dL
[2024-10-01 12:06] LABS: Creatinine Urine 77.33 mg/dL
[2024-10-01 12:06] LABS: Ferritin 95 ng/mL (10-250); TSH reflex Free T4 1.32 uIU/mL (0.32-4.0); Vitamin D 25-OH Total 35.5 ng/mL (>30)
[2024-10-01 12:31] LABS: Folate 10.3 ng/mL (> or = 4.0); Vitamin B12 490 pg/mL (200-900)
== END 2024-10-01 07:34 | disposition home or self-care (01) ==
LOC: HO.WFDLDS 07:33
PROVIDERS: Visit Provider Physician Assistant
DX: M85.80 Other specified disorders of bone density and structure, unspecified site (principal); E78.5 Hyperlipidemia, unspecified; R53.83 Other fatigue; Z13.220 Encounter for screening for lipoid disorders
CPT/HCPCS: 36415; 80053; 80061; 81003; 82043; 82306; 82570; 82607; 82728; 82746; 83540; 83735; 84443; 85025

== ENCOUNTER 2025-02-05 08:14 | Outpatient (AMB) | payer OTHER, SELFPAY ==
--- NOTE | 2025-02-05 08:23 | MHC.PC.OV ---
Vital Signs 02/05/25 08:27 Height 5 ft 2 in Weight 111 lb 4 oz BMI 20.3 BP 100/56 L Blood Pressure Location Lt brachial Position Sitting Respiration 12 Pulse 75 Pulse Source Pulse Oximeter Temp 98.2 F Temp Source Oral Pulse Oximetry (%) 96 Oxygen Delivery Method Room Air Intake Visit Reasons: hair loss Intake Note: Hair loss. Balding on the right side of head and back of head. Has been stressed with mothers diagnosis and hasn't been eating alot and stressed out. Requesting medication to help with anxiety. Has been having frequent yeast infections. 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 Allergies nitrofurantoin (From MACROBID) Allergy (Severe, Verified 02/05/25 08:24) SEVERE RASH HEAD TO TOE amoxicillin (AMOXICILLIN) Allergy (Mild, Verified 02/05/25 08:24) ITCHY vancomycin (VANCOMYCIN) Allergy (Mild, Verified 02/05/25 08:24) scalp itchiness ibuprofen (From MOTRIN) Allergy (Unknown, Verified 02/05/25 08:24) SHORT OF BREATH naproxen (From ALEVE) Allergy (Unknown, Verified 02/05/25 08:24) SHORT OF BREATH shellfish derived (SHELLFISH DERIVED) Allergy (Unknown, Verified 02/05/25 08:24) SHORT OF BREATH shrimp (SHRIMP) Allergy (Unknown, Verified 02/05/25 08:24) SHORT OF BREATH Medication List - Last Reconciled 02/05/25 by Yumiko Lentz PA-C estradiol 0.01%(0.1mg/gram) vaginal fluocinolone acetonide oil 0.01% drps otic (ears) triamcinolone acetonide 0.1% appl topical Tobacco use date assessed: 10/23/24 Dental Screening Dental Screen Date: 09/26/24 HPI hair loss HPI Details Patient is a 64-year-old female who presents today for an acute problem visit. She recently has been experiencing some increased anxiety. Her mother is getting sicker. She has many doctors appointments, Cardiology, pulmonology and is in a [facility] and patient states that her and her sister have to check on her every day. She does the evenings and her sister does the mornings. She states despite them going twice a day the nursing-home still makes errors. She states that over the summer it seems like her mother decompensated. This has been causing her increased anxiety every day. She states that it is consuming for her. She is not sure if she wants to start medication but if she did she would consider something like Lexapro. She states that since this all started she has also noticed that she has patches of hair loss. She has an appointment with dermatology tomorrow. She noticed 1 patch in the posterior aspect of her scalp. She states that it does not bother her but it bothers her cosmetically. She denies any symptoms with this. She also then noted a patch of hair loss on the right temporal aspect. She states when she gets stressed she pulls at her hair. [facility] Surgical History History of bunionectomy Family History Father HTN (hypertension) High cholesterol Cardiovascular disease Mother High cholesterol Breast cancer Maternal Grandmother Breast cancer Social History (Updated 02/05/25 @ 08:48 by Estella Cisneros CMA) Housing: House Alcohol intake: never Patient Tobacco Use Status: Current everyday Tobacco user e-Cigarette/Vaping Use: Never Used Second Hand Smoke Exposure: No Use of substances other than those prescribed or required for medical reasons: No service: No Current occupational status: employed Current occupation: [employer] Current occupational exposures/hazards: No Cognitive needs: No Hearing needs: No Vision needs: No Questionnaire Thrive Questionnaire Date Thrive assessed: 09/26/24 I am a: Patient What is your living situation today?: I have a steady place to live Within the past 12 months, did the food you bought not last and you didn't have the money to get more?: Never true Within the past 12 months, did you worry whether your food would run out before you got money to buy more?: Never true Do you have trouble paying for medicines?: No Do you have trouble getting transportation to medical appointments?: No Do you have trouble paying your heating and electricity bill?: No Do you have trouble taking care of your child, family member or friend?: No Do you have trouble with day-to-day activities such as bathing, preparing meals, shopping, managing finances, etc.?: No Are you currently unemployed and looking for a job?: No Are you interested in more education?: No Please select the resources that you would like help with: None Currently or been in a relationship where the following occur: No concerns reported THRIVE Score: 0 Physical exam (Primary Care) Vital Signs: Last Vital Signs Temp 98.2 F 02/05/25 08:27 Pulse 75 02/05/25 08:27 Resp 12 02/05/25 08:27 BP 100/56 L 02/05/25 08:27 Pulse Ox 96 02/05/25 08:27 Oxygen Delivery Method Room Air 02/05/25 08:27 BMI result Body Mass Index 20.3 Tobacco/Smoking Status: Tobacco use Status Tobacco use date assessed 10/23/24 02/05/25 08:29 Patient Tobacco Use Status Current everyday Tobacco 02/05/25 08:48 e-Cigarette/Vaping Use Never Used 02/05/25 08:48 Thrive Assessment: Date of Thrive Assessment Date Thrive assessed 09/26/24 02/05/25 08:26 Currently or been in a relationship where the following occur: No concerns reported Const Orientation/consciousness: patient oriented x3 HENMT Ears: hearing grossly normal bilaterally Neck Thyroid: Thyroid normal Lymphatic: no lymphadenopathy noted Resp Auscultation: clear to auscultation bilaterally Cardio Rate: regular rate Rhythm: regular rhythm Heart sounds: S1 normal heart sound present and S2 normal heart sound present GI Inspection: Yes normal to inspection Palpation (GI): Soft to palpation and Other GI palpation findings present (nontender, no cva tenderness) Auscultation: normoactive bowel sounds Rectal Exam - Female: deferred Skin Other: There is a 3 in x 3 in circular area of hair loss noted on the posterior aspect of the scalp. There is some small hair regrowth. There is a move area of hair loss noted on the right temporal aspect that is approximately 4 cm x 1 cm. Neuro General: patient oriented x3, gait normal and no focal motor deficits Results Reviewed Results Reviewed: Laboratory Tests 10/01/24 07:36 WBC 6.0 RBC 4.17 L Hgb 13.0 Hct 40.4 Plt Count 288 Creatinine 0.63 Estimated GFR > 60 Fasting Glucose 85 Calcium 9.6 Magnesium 2.2 Iron 100 Ferritin 95 AST 24 ALT 19 Alkaline Phosphatase 49 Total Protein 7.0 Vitamin B12 490 25-OH Vitamin D Total 35.5 Folate 10.3 TSH 1.32 Coding Level of Care Code Est Pt Level 4 (98721) Complex EM visit Add On G2211 Diagnoses Generalized anxiety disorder F41.1 Dyslipidemia E78.5 Alopecia L65.9 Assessment & Plan Assessment & Plan (1) Generalized anxiety disorder: Code(s): F41.1 - Generalized anxiety disorder Category: Medical Plan: No panic attack We spent significant time discussing medication. She wants to try magnesium and ashwagandha first. She will let me know how it goes and if she wants to try Lexapro. (2) Dyslipidemia: Code(s): E78.5 - Hyperlipidemia, unspecified Category: Medical Plan: Plan to recheck in 6 months (3) Alopecia: Code(s): L65.9 - Nonscarring hair loss, unspecified Category: Medical Plan: Seeing Dermatology tomorrow
[2025-02-05 08:27] VITALS: BP 100/56; PULSE 75; RESP 12; TEMP 36.8; O2SAT 96; BMI 20.3
--- OUTSIDE RECORDS SUMMARY | 2025-02-05 08:32 | XMS_ITS | Data Portability ---
Author Organization [place] - [facility], Allergy Address [address] [address] Assessment Encounter Date Assessment Date Assessment LastModified by Organization Details LastModified Time 02/14/2024 02/14/2024 Reviewed pathophysiology of transformation of eczema to otitis externa and the rationale for Q-tip avoidance and dry ear precautions. Recommend a few drops of mineral oil twice weekly and as needed for itching. Should this provide insufficient relief, patient may use fluocinolone up to twice daily for up to two weeks. Discussed she should follow up once or twice per year for re-evaluation and medication refills. She understands to call in the interim with otorrhea or diminished hearing. [email or web address] Not available 02/14/2024 13:38:26 03/06/2024 03/06/2024 63-year-old with history of allergic rhinitis previously treated with immunotherapy presents for evaluation of fluid in the ears. Exam today demonstrated bilateral serous effusions. Audiometric testing was offered today, but patient declined. Recommended to continue with use of Flonase nasal spray and an antihistamine daily. Also recommended gentle auto insufflation. We will arrange follow-up for 2-3 months for reevaluation. She will follow-up sooner with any worsening symptoms. [email or web address] Not available 03/06/2024 16:34:34 Plan of Treatment Reminders Order Date Submit Date Provider Last Modified By Organization Details Last Modified Time Details Appointments None recorded. Lab None recorded. Referral None recorded. Procedures None recorded. Surgeries None recorded. Imaging None recorded. Medication Orders fluocinolon e acetonide oil 0.01 % ear drops 2023 024 [facility] #[id number], [address] [place] [address], [address], 4 13:34:17 Patient TargetsNo targets recorded. Patient InstructionsNo instructions recorded. Reason for Referral None Reported. Problems Name Problem SNOMED Code Status Onset Date Resolution Date Notes Provider Name and Address Organization Details Recorded Time Acute non-infec tive otitis externa 828001943 Active 2018 Other noninfect laurie acute otitis externa, bilateral ; Note: Date Diagnosed : 10/05/2018 9:57 AM (H60.593) Not Available [facility] 4 03:00:25 Itching of skin 803808023 Active 2018 Other pruritus; Note: Date Diagnosed : 10/05/2018 9:42 AM (L29.8) Not Available [facility] 4 03:00:22 Deviated nasal septum 522950448 Active 2018 Deviated nasal septum; Note: Date Diagnosed : 10/05/2018 9:42 AM (J34.2) Not Available [facility] 4 03:00:23 Allergic rhinitis 17653222 Active 2021 Allergic rhinitis: Due to other allergen; Note: Date Diagnosed : 01/27/2022 3:59 PM (477.8) Allergi c rhinitis: Due to other allergen; Note: Date Diagnosed : 11/11/2021 3:48 PM (477.8) ; Start Date : 2 Allergi c rhinitis: Due to other allergen; Note: Date Diagnosed : 10/27/2021 9:42 AM (477.8) ; Start Date : 2 Allergi c rhinitis: Due to other allergen; Note: Date Diagnosed : 10/13/2021 4:11 PM (477.8) ; Start Date : 2 Allergi c rhinitis: Due to other allergen; Note: Date Diagnosed : 09/28/2021 3:50 PM (477.8) ; Start Date : 2 Allergi c rhinitis: Due to other allergen; Note: Date Diagnosed : 08/31/2021 3:48 PM (477.8) ; Start Date : 2 Allergi c rhinitis: Due to other allergen; Note: Date Diagnosed : 07/21/2021 5:41 PM (477.8) ; Start Date : 2 Allergi c rhinitis: Due to other allergen; Note: Date Diagnosed : 04/27/2021 3:44 PM (477.8) ; Start Date : 2 Allergi c rhinitis: Due to other allergen; Note: Date Diagnosed : 03/02/2021 3:48 PM (477.8) ; Start Date : 1 Allergi c rhinitis: Due to other allergen; Note: Date Diagnosed : 10:42 AM (477.8) ; Start Date : 1 Allergi c rhinitis: Due to other allergen; Note: Date Diagnosed : 01/19/2021 1:55 PM (477.8) ; Start Date : 1 Allergi c rhinitis: Due to other allergen; Note: Date Diagnosed : 01/07/2021 4:37 PM (477.8) ; Start Date : 1 Allergi c rhinitis: Due to other allergen; Note: Date Diagnosed : 11/11/2020 3:44 PM (477.8) ; Start Date : 1 Allergi c rhinitis: Due to other allergen; Note: Date Diagnosed : 10/14/2020 4:14 PM (477.8) ; Start Date : 1 Allergi c rhinitis: Due to other allergen; Note: Date Diagnosed : 09/29/2020 4:07 PM (477.8) ; Start Date : 1 Allergi c rhinitis: Due to other allergen; Note: Date Diagnosed : 09/17/2020 3:38 PM (477.8) ; Start Date : 1 Allergi c rhinitis: Due to other allergen; Note: Date Diagnosed : 09/01/2020 3:44 PM (477.8) ; Start Date : 1 Allergi c rhinitis: Due to other allergen; Note: Date Diagnosed : 08/25/2020 4:32 PM (477.8) ; Start Date : 1 Allergi c rhinitis: Due to other allergen; Note: Date Diagnosed : 08/18/2020 3:46 PM (477.8) ; Start Date : 1 Allergi c rhinitis: Due to other allergen; Note: Date Diagnosed : 08/12/2020 3:45 PM (477.8) ; Start Date : 1 Allergi c rhinitis: Due to other allergen; Note: Date Diagnosed : 07/29/2020 3:42 PM (477.8) ; Start Date : 1 Allergi c rhinitis: Due to other allergen; Note: Date Diagnosed : 07/24/2020 10:56 AM (477.8) ; Start Date : 1 Allergi c rhinitis: Due to other allergen; Note: Date Diagnosed : 07/14/2020 11:39 AM (477.8) ; Start Date : 1 Allergi c rhinitis: Due to other allergen; Note: Date Diagnosed : 07/07/2020 3:47 PM (477.8) ; Start Date : 1 Allergi c rhinitis: Due to other allergen; Note: Date Diagnosed : 06/30/2020 11:52 AM (477.8) ; Start Date : 1 Allergi c rhinitis: Due to other allergen; Note: Date Diagnosed : 06/24/2020 3:43 PM (477.8) ; Start Date : 1 Allergi c rhinitis: Due to other allergen; Note: Date Diagnosed : 06/16/2020 11:10 AM (477.8) ; Start Date : 1 Allergi c rhinitis: Due to other allergen; Note: Date Diagnosed : 06/10/2020 3:41 PM (477.8) ; Start Date : 1 Allergi c rhinitis: Due to other allergen; Note: Date Diagnosed : 05/06/2020 3:59 PM (477.8) ; Start Date : 1 Allergi c rhinitis: Due to other allergen; Note: Date Diagnosed : 0 3:38 PM (477.8) ; Start Date : 0 Allergi c rhinitis: Due to other allergen; Note: Date Diagnosed : 04/01/2020 4:05 PM (477.8) ; Start Date : 0 Allergi c rhinitis: Due to other allergen; Note: Date Diagnosed : 0 10:17 AM (477.8) ; Start Date : 0 Allergi c rhinitis: Due to other allergen; Note: Date Diagnosed : 0 3:40 PM (477.8) ; Start Date : 0 Allergi c rhinitis: Due to other allergen; Note: Date Diagnosed : 0 1:5 Not Available [facility] 4 03:00:26 Eczema of external auditory canal 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 - [facility] 4 16:20:04 Problem Notes None recorded. Medical Equipment None Reported. Allergies Allergen ID Allergen Name Allergen Category Reaction Reaction Severity Criticality Documentation Date Start Date Code Code System Note Provider Name and Address Organization Details Recorded Time 31659 vancomyci n medicatio n hives Not available Not available 09/05/2023 04543 RxNorm React ion: other react ion, Itch; Not Available [facility] 4 01:00:53 07001 amoxicill in medicatio n other Not available Not available 09/05/2023 723 RxNorm React ion: unkno wn, unspe cifie d;; Not Available [facility] 4 01:01:01 82280 Macrobid medicatio n other Not available Not available 09/05/2023 63573 1 RxNorm React ion: unkno wn, unspe cifie d;; Not Available [facility] 4 01:01:07 Medications Name Sig Start Date Stop Date Status Note LastModified by Organization Details LastModified Time cetirizin e 10 mg tablet 11/15 completed Medicati on ID: [id number] B rand Name: cetirizi ne Send Method: E-Prescr ibed Sub s Allowed: subs OK Medic ationGen ericName : cetirizi ne Not Available Not Available Not Available fluconazo le 150 mg tablet TAKE 1 TABLET BY MOUTH EVERY DAY FOR 1 DAY active Not Available Not Available No t Available fexofenad ine 180 mg tablet active Medicati on ID: [id number] B rand Name: fexofena dine Sen d Method: E-Prescr ibed Sub s Allowed: subs OK Medic ationGen ericName : fexofena dine Not Available Not Available Not Available tretinoin 0.05 % topical cream APPLY PEA SIZED AMOUNT TO FACE AT BEDTIME TOLERATE D, FOLLOWED BY MOISTURI ZER active Not Available Not Available No t Available triamcino lone acetonide 0.1 % topical cream PLEASE SEE ATTACHED FOR DETAILED DIRECTIO NS active Not Available Not Available No t Available doxycycli ne monohydra te 100 mg capsule TAKE 1 CAPSULE BY MOUTH TWICE A DAY FOR 7 DAYS active Not Available Not Available No t Available estradiol 0.01% (0.1 mg/gram) vaginal cream INSERT 0.5 GRAMS INTRAVAG INALLY EVERY DAY active Not Available Not Available No t Available fluticaso ne propionat e 50 mcg/actua tion nasal spray,alyssa pension USE 1 SPRAY INTO EACH NOSTRIL TWICE A DAY FOR 30 DAYS active Not Available Not Available No t Available Vitamin D3 25 mcg (1,000 unit) capsule 2018 active Medicati on ID: [id number] B rand Name: Vitamin D3 Send Method: E-Prescr ibed Sub s Allowed: subs OK Medic ationGen ericName : Vitamin D3 Not Available Not Available Not Available collagen 10/14 completed Medicati on ID: [id number] B rand Name: collagen Send Method: E-Prescr ibed Sub s Allowed: subs OK Medic ationGen ericName : collagen Not Available Not Available Not Available fluocinol one acetonide oil 0.01 % ear drops PLACE 3 DROPS INTO AFFECTED EAR(S) TWICE DAILY FOR 2 WEEKS THEN NEEDED active Not Available Not Available No t Available GaviLyte- G 236 gram-22.7 4 gram-6.74 gram-5.86 gram oral solution TAKE 4000 ML BY MOUTH DIRECTED active Not Available Not Available No t Available EpiPen 2-Nish 0.3 mg/0.3 mL injection , auto-inje ctor 1 syringe intramus cularly 2021 active Medicati on ID: [id number] D uration Value: 1 Brand Name: EpiPen 2-Nish Se nd Method: E-Prescr ibed Sub s Allowed: subs OK Speci al Instruct ion: to treat anaphyla xis Medi cationGe nericNam e: EpiPen 2-Nish Not Available Not Available Not Available Probiotic (B. coagulans ) 10 billion cell capsule,d elayed release 2018 active Medicati on ID: [id number] B rand Name: Probioti c (B. coagulan s) Send Method: E-Prescr ibed Sub s Allowed: subs OK Medic ationGen ericName : Probioti c (B. coagulan s) Not Available Not Available Not Available Vitals Date Recorded Body height Body mass index (BMI) Body weight Provider Name and Address Organization Details Last Updated DateTime 02/14/2024 160.02 cm 19.5 kg/m2 64133.16 g [facility] - [facility] 02/14/2024 13:23:07 Date Recorded Body height Body mass index (BMI) Body weight Provider Name and Address Organization Details Last Updated DateTime 03/06/2024 160.02 cm 19.5 kg/m2 [address] [facility] [place] [place] [facility] 03/06/2024 15:51:32 Social History None recorded. Functional Status None recorded. Mental Status None recorded. Family History Nothing Reported. Medical History No medical history recorded. Gynecological HistoryNo gynecological history recorded. Obstetrics History GPAL:G 0 P 0 0 0 0 Past Encounters Encounter ID Performer Location Encounter Start Date Encounter Closed Date Diagnosis/Indication Diagnosis SNOMED-CT Code Diagnosis ICD10 Code Diagnosis IMO Codes Diagnosis Note [id number] SHANI METZGER PA-C [facility] [address] [address] 02/14/2024 13:15:58 02/14/2024 13:35:22 Itching of skin 063372341 L29.89 Eczema of external auditory canal 68985062 H60.549 [id number] SUPA SWANSON PA-C [facility] [address] [place] [address] 03/06/2024 15:45:57 03/06/2024 16:17:47 Allergic rhinitis 47374732 J30.89 Acute sero us otitis media of bilateral ears 6087205337 318789 H65.03 Health Concerns Section Related Observation LastModified by Organization Detai ls LastModified Time None Recorded Concern Status LastModified by Organization Details LastModified Time None Recorded Advance Directives Directive None Recorded Payers Insurance Date Sequence Insurance Name Policy Number Policy Coreas Covered Member ID Coreas Member ID Guarantor Name 03/04/2024 1 [facility] IN[facility]MNITY PLAN (INDEMNITY) [id number] Meeta Poole [id number] Meeta Poole 03/06/2024 1 [facility] INDEMNITY PLAN (PPO) [id number] Meeta Poole [id number] Meeta Poole Notes Date Note Type Note Provider Name and Address Organization Details Recorded Time 02/14/2024 text/html ROS as noted in the HPI 63 year old female presents after 2 year hiatus from the practice for re-evaluation of the ears and a medication refill. She reports the itching of the ears persists. The fluocinolone does calm things down. She uses Q-tips frequently. Sometimes applies hydrogen peroxide on a Q-tip. Does not abide by dry ear precautions. She denies otalgia and otorrhea. Hearing is good. NEVAEH JEFFERSON MD [address] [place] [address], [phone], [facility] 02/14/2024 14:45:25 03/06/2024 text/html ROS as noted in the HPI 63-year-old with history of allergic rhinitis previously treated with immunotherapy presents for evaluation of fluid in the ears. She had an upper respiratory infection last week and since then has noted bilateral ear blockage associated with reduced hearing. Denies otalgia, otorrhea, and tinnitus. She took a few doses of Ashlyn and Flonase and notes symptoms have improved. Does hear popping in the ears. History of tympanostomy tubes as a child. JERICA JAY MD [address] [place] [address], [phone], [facility] - [facility] 03/06/2024 16:42:41 OBGyn Episode No OBEpisode recorded.
--- OUTSIDE RECORDS SUMMARY | 2025-02-05 08:32 | XMS_ITS | Patient Health Record ---
Author Organization [facility] Address [address] [place] [address] Care Team Providers Care Ship'S Electronic Warfare Officer Name Role Phone Anai Chaudhry MD Primary Care Provider Calderon Enriquez Unavailable [phone] Allergies Allergen (clinical drug ingredient) Drug/Non Drug Allergy documented on EMR Reaction Allergy Type Onset Date Status Mold, trees, cat,dogs, dust (uncoded) Unknown Allergy Active ibuprofen Advil SOB Drug Allergy Active Aleve SOB Drug Allergy Active amoxicillin Amoxicillin itchy Drug Allergy Act laurie nitrofurantoin, macrocrystals / nitrofurantoin, monohydrate Macrobid severe Drug Allergy Active Motrin SOB Drug Allergy Active vancomycin Vancomycin HCl Unknown Drug Allergy A ctive Penicillin itchy Drug Allergy Active Shrimp/Shell Fish throat closes Drug Allergy Active Reason For Referral No Information Medications Medication SIG (Take, Route, Fr equency, Duration) Notes Start Date End Date Status Tylenol Not-Taking Physical Therapy 3-4x per week for 3-4 weeks 11/27 Active Gabapentin 100 MG 2 capsules Orally On ce a day; Duration: 10 days 10/30/2018 Not-Taking ear drops Active Probiotic Active Vitamin D Active Social History Tobacco Use: Social History Observation Description Date Details (start date - stop date) Former Smoker NA - NA Tobacco Use/Smoking Question Answer Notes Are you a: former smoker When did you stop smoking? 30 yrs ago Additional Findings: Tobacco Non-User Ex-cigaret te smoker Alcohol Screen Question Answer Notes Did you have a drink containing alcohol in the p ast year? No Points 0 Interpretation Negative Tobacco use other than smoking: Question Answer Notes Are you an other tobacco user? No Problems Problem Type SNOMED Code ICD Code Onset Dates Problem Status W/U Status Risk Notes Problem Acquired hallux valgus (04432806) Hallux valgus (acquired), left foot (M20.12) Active confirmed Problem Acquired hallux valgus (39685547) Hallux valgus (acquired), right foot (M20.11) Active confirmed Plan Of Treatment Pending Test Test Name Order Date X ray : Foot, left 2V 10/20/2017 X ray : Foot, right 2V 01/16/2018 X ray : Foot, right 2V 10/20/2017 X ray : Foot, left 3V 10/30/2018 X ray : Foot, left 3V 11/13/2018 X ray : Foot, left 3V 11/27/2018 X ray : Foot, left 3V 12/25/2018 X ray : Foot, right 3V 01/02/2018 X ray : Foot, right 3V 02/06/2018 X ray : Foot, right 3V 03/06/2018 10165- Strapping (Low Dye) 02/06/2018 Insurance Providers Payer Name Payer Address Payer Phone Subscriber Number Group Number Insured Name Patient Relationship to Insured Coverage Start Date Coverage End Date [facility] [address] [place] [address] [id number] Meeta Poole Self - patient is the insured Medical (General) History Medical History History ICD Code Back,Hip,and Knee pain Chicken pox Headaches Migraines Mumps Poor circulation Raynauds syndrome Surgical History Surgery Date(Month/Year) ear surgery tonsillectomy Alverto w/vivi Right, Tailor Bunion R 12/28/2017 Hospitalization History Reason Date(Month/[place] [facility] [place]/28[place]17
== END 2025-02-05 08:52 | disposition home or self-care (01) ==
LOC: HO.HMCFM 08:15
PROVIDERS: PCP Physician Assistant; Visit Provider Physician Assistant
DX: F41.1 Generalized anxiety disorder (principal); E78.5 Hyperlipidemia, unspecified; L65.9 Nonscarring hair loss, unspecified